=== PATIENT | female | born 1990 | race Caucasian/White ===

== ENCOUNTER 2017-01-03 19:28 | Emergency (ER) | payer MEDICAID ==
[~2017-01-03] VITALS: Ht 157.5 cm; Wt 61.5 kg
[2017-01-03 19:41] VITALS: Ht 157.5 cm; Wt 61.5 kg
[2017-01-03] MEDS ORDERED: ACETAMINOPHEN 500 MG TAB PO STA (20:16)
[2017-01-03 20:41] LABS: ADD UMIC NO; URINE BILIRUBIN (Dip) NEGATIVE (NEGATIVE); URINE BLOOD (Dip) NEGATIVE (NEGATIVE); URINE COLOR LT. YELLOW (YELLOW); URINE GLUCOSE (Dip) NEGATIVE (NEGATIVE); URINE KETONES (Dip) NEGATIVE (NEGATIVE); URINE LEUKOCYTE ESTERASE (Dip) NEGATIVE (NEGATIVE); URINE NITRITE (Dip) NEGATIVE (NEGATIVE); URINE TOTAL PROTEIN (Dip) NEGATIVE (NEGATIVE); URINE UROBILINOGEN (Dip) 0.2 E.U./dL (0.1-1.0)
--- NOTE | 2017-01-03 22:27 | RADRPT ---
PROCEDURE: Obstetrical ultrasound, limited. CLINICAL INDICATION: Pelvic pain. TECHNIQUE: Multiple sonographic images of the pelvis were obtained using transabdominal technique . Images were obtained with mcdaniel scale and color Doppler. The images were reviewed on a PACS works tation. COMPARISON: No prior studies are available for comparison. FINDINGS: There is a single living intrauterine gestation with the fetus in a vertex and variable presentation . heart tones of 150 beats per minute are identified. The placenta is anterior in location, grade 1. There is no evidence of placenta previa or abruption. Measurements were made in order to determine age. The results are as follows: BPD =4.14 cm HC =14.67 cm AC =13.45 cm FL =2.46 cm. Estimated gestational age of approximately 18 weeks and 1 day. The estimated date of delivery is 06/05/2017. The EFW = 228 +/- 34 grams. Estimated weight percentage equals 88.2%. IMPRESSION: Single viable intrauterine gestation of approximately 18 weeks and 1 day, with an ultrasound GREG of 06/05/2017. .Justino Jin MD, MD Date Time Electronically viewed and signed by .Justino Jin MD, MD on 01/03/2017 22:26 .T/
[2017-01-03] MEDS ORDERED: ACET500C5 PO (22:40)
--- NOTE | 2017-01-03 22:58 | ERD ---
ER Documentation Chief Complaint Date/Time DATE: 01/03/17 TIME: 22:46 Chief Complaint BACK AND ANTERIOR PELVIC PAIN, SLIPPED FELL BCKWRDS 1-2 MOS AGO, 16WKS PREG HPI Patient is a 26-year-old female, , who presents to the emergency department for back and pelvic pain which started 4 months ago. Patient states 4 months ago she fell backwards while at work. Patient states that her pain is localized to her lower back. Patient denies any radiation of the pain down her legs. Patient denies any saddle anesthesia, bowel guarding, stool incontinence. Patient denies any dysuria, hematuria, frequency or urgency. She denies any shortness of breath, chest pain, nausea, vomiting or diarrhea. Patient denies any excessive vaginal bleeding or vaginal discharge. Patient denies taking any medication for her symptoms. ROS All systems reviewed and are negative except as per history of present illness. Medications Home Meds Active Scripts Acetaminophen* (Tylophen*) 500 Mg Capsule, 1 CAP PO Q6H Y for PAIN AND OR ELEVATED TEMP, #20 CAP Prov:HALIMA GUSMAN PA-C 01/03/17 Allergies Allergies: Coded Allergies: No Known Allergy (Unverified , 01/03/17) PMhx/Soc Medical and Surgical Hx: pt denies Surgical Hx History of Surgery: No Anesthesia Reaction: No Hx Neurological Disorder: No Hx Respiratory Disorders: No Hx Cardiac Disorders: No Hx Psychiatric Problems: No Hx Miscellaneous Medical Probl: Yes (anemia) Hx Alcohol Use: No Hx Substance Use: No Hx Tobacco Use: No FmHx Family History: No diabetes Physical Exam Vitals Vital Signs Date Time Temp Pulse Resp B/P Pulse Ox O2 Delivery O2 Flow Rate FiO2 01/03/17 19:41 98.5 77 18 109/59 100 Physical Exam GENERAL: Well-developed, well-nourished female. Appears in no acute distress. HEAD: Normocephalic, atraumatic. EYES: Pupils are equally reactive bilaterally. EOMs grossly intact. No conjunctival erythema. ENT: Moist mucous membranes. No uvula deviation. No kissing tonsils. NECK: Supple. No meningismus. Normal range of motion of the neck. LUNG: Clear to auscultation bilaterally. No rhonchi, wheezing, rales or coarse breath sounds. HEART: Regular rate and rhythm. No murmurs, rubs or gallops. ABDOMEN: Soft and nondistended. Positive bowel sounds in all four quadrants. No rebound tenderness, no guarding. (-) McBurney's point tenderness. No CVA tenderness. BACK: No midline tenderness. Tender to palpation of bilateral lumbar paraspinals muscle. Negative straight leg raise bilaterally. EXTREMITIES: Equal pulses bilaterally. No peripheral clubbing, cyanosis or edema. No unilateral leg swelling. NEUROLOGIC: Alert and oriented. Moving all four extremities without any difficulty. Normal speech. Steady gait. SKIN: Normal color. Warm and dry. No rashes or lesions. Results 24 hrs Laboratory Tests Test 01/03/17 20:24 Urine Color LT. YELLOW Urine Clarity CLEAR Urine pH 6.5 Urine Specific [place] 1.025 Urine Ketones NEGATIVE Urine Nitrite NEGATIVE Urine Bilirubin NEGATIVE Urine Urobilinogen 0.2 E.U./dL Urine Leukocyte Esterase NEGATIVE Urine Hemoglobin NEGATIVE Urine Glucose NEGATIVE% Urine Total Protein NEGATIVE Current Medications Medications (Trade) Dose Ordered Sig/Juan Route PRN Reason Start Time Stop Time Status Last Admin Dose Admin Acetaminophen (Tylenol Tab) 500 mg ONCE STAT PO 01/03/17 20:16 01/03/17 20:18 DC 01/03/17 20:22 Procedures/MDM ED COURSE: The patient was stable throughout ED course. I kept the patient and/or family informed of laboratory and diagnostic imaging results throughout the ED course. DIAGNOSTIC IMAGING: Read by radiologist. DIAGNOSTIC IMAGING REPORT Patient: SHAHAB YOUNG : 1990 Age: 26 Sex: F MR #: [id number] DOS: 01/03/172015 Ordering MD: HALIMA GUSMAN PA-C Location: FTE Room/Bed: PROCEDURE: Obstetrical ultrasound, limited. CLINICAL INDICATION: Pelvic pain. TECHNIQUE: Multiple sonographic images of the pelvis were obtained using transabdominal technique. Images were obtained with mcdaniel scale and color Doppler. The images were reviewed on a PACS workstation. COMPARISON: No prior studies are available for comparison. FINDINGS: There is a single living intrauterine gestation with the fetus in a vertex and variable presentation. heart tones of 150 beats per minute are identified. The placenta is anterior in location, grade 1. There is no evidence of placenta previa or abruption. Measurements were made in order to determine age. The results are as follows: BPD = 4.14 cm HC = 14.67 cm AC = 13.45 cm FL = 2.46 cm. Estimated gestational age of approximately 18 weeks and 1 day. The estimated date of delivery is 06/05/2017. The EFW = 228 +/- 34 grams. Estimated weight percentage equals 88.2%. IMPRESSION: Single viable intrauterine gestation of approximately 18 weeks and 1 day, with an ultrasound GREG of 06/05/2017. .Justino Jin MD, Date Time Electronically viewed and signed by .Justino Jin MD, MD on 01/03/2017 22:26 .T/ CC: HALIMA GUSMAN PA-C MEDICATIONS GIVEN: Tylenol Patient tolerated medication well with no adverse reactions. Patient reported improvement in pain. MEDICAL DECISION MAKING: This is a 26-year-old female , who presents to the emergency department with lower back pain for months. Patient should not states she fell while at work 4 months ago. Vital signs were reviewed. Patient was afebrile. Patient denied any fever, chills, saddle anesthesia, urinary incontinence, bowel incontinence. UA was negative for acute infection or hematuria. Given that patient is currently , x-ray imaging was deferred at this time. I explained to the patient that given her state I am unable to rule out any acute fractures or dislocations. Patient was given Tylenol here in the ED. Patient reported improvement in pain. Cervical ultrasound showed single viable intrauterine gestation of approximately 18 weeks and 1 day. Given these findings, the patient's presentation is most consistent with lumbar strain. I have a much lower clinical concern for cauda equine syndrome, epidural abscess, spinal metastases, osteomyelitis, aortic dissection, ruptured or leaking AA, sciatica, UTI, pyelonephritis or nephrolithiasis. PRESCRIPTIONS: Tylenol DISCHARGE: At this time, patient is stable for discharge and outpatient management. Cool compresses were advised. 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 Patient may need an MRI on an outpatient basis if her pain persists. RICE therapy and ROM exercises were advised to avoid stiffness. I have instructed the patient to follow-up with his/ her primary care physician in 1-2 days. I have discussed with the patient the possibility of needing to see an airborne sensor specialist for further workup and imaging if the pain persists. I have instructed the patient to promptly return to the ER for any new or worsening symptoms including increased pain, swelling, warmth, urinary incontinence, stool incontinence, weakness or numbness. The patient and/or family expressed understanding of and agreement with this plan. All questions were answered. Home care instructions were provided. Departure Diagnosis: Primary Impression: Back pain Back pain location: back pain in unspecified location Chronicity: unspecified Back pain laterality: unspecified Qualified Code: M54.9 - Back pain, unspecified back location, unspecified back pain laterality, unspecified chronicity Condition: Stable Patient Instructions: Back Pain (Acute Or Chronic), , Established, Normal Symptoms Referrals: RESEARCH MECHANIC [place] [address] [facility] [address] [place] [address]ABUSLEME [facility] [address] [place] [address] DR. GARCIA LILY [address] [place] [address] [address] SAVAGE [facility] [address] [facility], [facility] [address] [address] [address] [facility] [address] [place] [address] [facility] [address] [place] [address] [phone] [address] [facility] [address] - [place], [facility] [address] [address] [place], [place] [address] [facility] [address] [address] [address] [address] [place], [place] [address] [facility] YOU HAVE RECEIVED A MEDICAL SCREENING EXAM AND THE RESULTS INDICATE THAT YOU DO NOT HAVE A CONDITION THAT REQUIRES URGENT TREATMENT IN THE EMERGENCY DEPARTMENT. FURTHER EVALUATION AND TREATMENT OF YOUR CONDITION CAN WAIT UNTIL YOU ARE SEEN IN YOUR DOCTORS OFFICE WITHIN THE NEXT 1-2 DAYS. IT IS YOUR RESPONSIBILITY TO MAKE AN APPOINTMENT FOR FOLOW-UP CARE. IF YOU HAVE A PRIMARY DOCTOR --you should call your primary doctor and schedule an appointment IF YOU DO NOT HAVE A PRIMARY DOCTOR YOU CAN CALL OUR PHYSICIAN REFERRAL HOTLINE AT IF YOU CAN NOT AFFORD TO SEE A PHYSICIAN YOU CAN CHOSE FROM THE FOLLOWING [facility] [address] [facility] [address] [facility] [address] [facility] [address] [facility] [address] [facility] [address] [facility]. [facility] [address] [facility]. [facility] YOU HAVE RECEIVED A MEDICAL SCREENING EXAM AND THE RESULTS INDICATE THAT YOU DO NOT HAVE A CONDITION THAT REQUIRES URGENT TREATMENT IN THE EMERGENCY DEPARTMENT. FURTHER EVALUATION AND TREATMENT OF YOUR CONDITION CAN WAIT UNTIL YOU ARE SEEN IN YOUR DOCTORS OFFICE WITHIN THE NEXT 1-2 DAYS. IT IS YOUR RESPONSIBILITY TO MAKE AN APPOINTMENT FOR FOLOW-UP CARE. IF YOU HAVE A PRIMARY DOCTOR --you should call your primary doctor and schedule and appointment IF YOU DO NOT HAVE A PRIMARY DOCTOR YOU CAN CALL OUR PHYSICIAN REFERRAL HOTLINE AT . IF YOU CAN NOT AFFORD TO SEE A PHYSICIAN YOU CAN CHOSE FROM THE FOLLOWING [facility]: [facility] [address] [place] [address] [facility] [address] [place] [address] [facility] [address] [place] [address] Additional Instructions: Call your primary care doctor/OBGYN TOMORROW for an appointment during the next 1-2 days.See the doctor sooner or return here if your condition worsens before your appointment time. Unable to rule out any fractures, ligament or tendon injuries at this time. HALIMA GUSMAN PA-C Jan 03, 2017 22:58
[2017-01-03 23:11] VITALS: BP 107/76; PULSE 66; RESP 16
== END 2017-01-03 23:11 | disposition home or self-care (01) ==
LOC: FTE 19:28
DX: O99.89 Other specified diseases and conditions complicating pregnancy, childbirth and the puerperium (principal); M54.9 Dorsalgia, unspecified; Z3A.18 18 weeks gestation of pregnancy
CPT/HCPCS: 76805; 81003; Z7502; Z7610

== ENCOUNTER 2017-03-29 19:50 | Outpatient (CLI) | payer MEDICAID ==
[~2017-03-29] VITALS: Ht 152.4 cm; Wt 71.0 kg
[~2017-03-29 19:50] MED LIST: ACET500C5 PO
[2017-03-29 21:38] LABS: UR BILIRUBIN (Dip) NEGATIVE (NEGATIVE); UR BLOOD (Dip) NEGATIVE (NEGATIVE); UR CLARITY CLEAR (CLEAR); UR COLOR STRAW (YELLOW); UR GLUCOSE (Dip) NEGATIVE (NEGATIVE); UR KETONES (Dip) NEGATIVE (NEGATIVE); UR NITRITE (Dip) NEGATIVE (NEGATIVE); UR SPECIFIC GRAVITY (Dip) 1.003 (1.003-1.030); UR TOTAL PROTEIN (Dip) NEGATIVE (NEGATIVE)
[2017-03-29 21:39] LABS: ADD UMIC NO; UR ASCORBIC ACID NEGATIVE (NEGATIVE); UR LEUKOCYTE ESTERASE (Dip) NEGATIVE Leu/ul (NEGATIVE); UR UROBILINOGEN (Dip) NEGATIVE (NEGATIVE)
[2017-03-29 21:48] VITALS: BP 121/78; PULSE 82; RESP 18
[2017-03-29] MEDS ORDERED: FERR134T PO (21:51)
[2017-03-29] MEDS ORDERED: PREN-93 PO (21:51)
--- NOTE | 2017-03-29 22:09 | RADRPT ---
PROCEDURE: US evaluation of amniotic fluid volume. CLINICAL INDICATION: Contractions. TECHNIQUE: Multiple sonographic images of the gravid uterus were obtained utilizing mcdaniel-scale nate ging. Sagittal and transverse images were obtained. Transvaginal sonography of the cervix was also performed. The images were reviewed on a PACS workstation. NISHI was measured. COMPARISON: No prior studies are available for comparison. FINDINGS: There is a single live intrauterine . heart rate is 166 beats per minute. Position is cephalic. Placenta is anterior grade 1 with no abruption or previa. NISHI is 13.1 cm. (Normal = 5-20 cm.) Transvaginal cervical length is 4.3 cm. IMPRESSION: 1. NISHI is 13.1 cm. 2. Cervical length is 4.3 cm. RPTAT: QQ .Silver Daniels MD, MD Date Time Electronically viewed and signed by .Silver Daniels MD, on 03/29/2017 22:08 .R/
[2017-03-29 22:53] LABS: BASOPHILS % 0.2 % (0.0-2.0); EOSINOPHILS # 0.2 10^3/ul (0.0-0.5); EOSINOPHILS % 1.7 % (0.0-7.0); HEMATOCRIT 33.8 % (37.0-47.0); HEMOGLOBIN 11.6 g/dl (12.0-16.0); LYMPHOCYTES % 19.4 % (15.0-51.0); MEAN CORPUSCULAR HEMOGLOBIN 31.2 pg (29.0-33.0); MEAN CORPUSCULAR HGB CONC 34.3 g/dl (32.0-37.0); MEAN CORPUSCULAR VOLUME 90.9 fl (82.0-101.0); MEAN PLATELET VOLUME 10.4 fl (7.4-10.4); MONOCYTE # 0.8 10^3/ul (0.3-0.9); MONOCYTES % 7.4 % (0.0-11.0); NEUTROPHILS % 68.8 % (39.0-77.0); PLATELET COUNT 311 10^3/UL (140-415); RED BLOOD COUNT 3.72 10^6/ul (4.20-5.40); RED CELL DISTRIBUTION WIDTH 13.9 % (11.5-14.5); WHITE BLOOD COUNT 10.5 10^3/ul (4.8-10.8)
[2017-03-29 23:30] LABS: ALBUMIN 3.7 g/dl (3.3-4.9); CALCIUM 9.8 mg/dl (8.4-10.2); CREATININE 0.54 mg/dl (0.44-1.00); POTASSIUM 3.7 mmol/L (3.5-5.1); TOTAL PROTEIN 7.4 g/dl (6.1-8.1)
--- NOTE | 2017-03-30 00:13 | PN ---
Triage Information Date/Time Reason for visit: Abd/pelvic pain Weeks of Gestation 29 weeks /Para Diabetes: none Hypertention: none Objective Vital Signs Date Time Temp Pulse Resp B/P Pulse Ox O2 Delivery O2 Flow Rate FiO2 03/29/17 21:48 98.1 82 18 121/78 Room Air Heart Rate: 140's Heart Rate Comments Category I Contractions: None Results/Medications Result Diagram: 03/29/17215103/29/172151 Results 24 hrs Laboratory Tests Test 03/29/17 19:59 03/29/17 20:54 03/29/17 21:52 Urine Color STRAW Urine Clarity CLEAR Urine pH 7.0 Urine Specific [place] 1.003 Urine Ketones NEGATIVE Urine Nitrite NEGATIVE Urine Bilirubin NEGATIVE Urine Urobilinogen NEGATIVE Urine Leukocyte Esterase NEGATIVE Urine Hemoglobin NEGATIVE Urine Glucose NEGATIVE Urine Total Protein NEGATIVE Membranes Rupture NEGATIVE White Blood Count 10.5 Red Blood Count 3.72 L Hemoglobin 11.6 L Hematocrit 33.8 L Mean Corpuscular Volume 90.9 Mean Corpuscular Hemoglobin 31.2 Mean Corpuscular Hemoglobin Concent 34.3 Red Cell Distribution Width 13.9 Platelet Count 311 Mean Platelet Volume 10.4 Neutrophils % 68.8 Lymphocytes % 19.4 Monocytes % 7.4 Eosinophils % 1.7 Basophils % 0.2 Nucleated Red Blood Cells % 0.0 Neutrophils # (Manual) 7.2 Lymphocytes # 2.0 Monocytes # 0.8 Eosinophils # 0.2 Basophils # 0.0 Nucleated Red Blood Cells # 0.0 Sodium Level 138 Potassium Level 3.7 Chloride Level 102 Carbon Dioxide Level 23 Anion Gap 17 H Blood Urea Nitrogen 10 Creatinine 0.54 Glucose Level 86 Calcium Level 9.8 Total Bilirubin 0.0 L Direct Bilirubin 0.00 Indirect Bilirubin 0.0 Aspartate Amino Transf (AST/SGOT) 23 Alanine Aminotransferase (ALT/SGPT) 33 Alkaline Phosphatase 100 Total Protein 7.4 Albumin 3.7 Globulin 3.70 H Albumin/Globulin Ratio 1.00 Amylase Level 67 Lipase 45 Disposition: Discharge Assessment/Plan After rest, pain resolved. D/C home. BRUNO GARCIA MD Mar 30, 2017 00:13
== END 2017-03-30 02:00 | disposition home or self-care (01) ==
LOC: OBT 19:50 → L-D 19:51 → OBT 03-30 02:00
PROVIDERS: ATTEND Obstetrics & Gynecology
DX: O26.893 Other specified pregnancy related conditions, third trimester (principal); Z3A.29 29 weeks gestation of pregnancy; R10.9 Unspecified abdominal pain
CPT/HCPCS: 76815; 76817; 80053; 81003; 82150; 83690; 84112; 85025; Z7500; G0463

== ENCOUNTER 2017-05-19 19:46 | Outpatient (CLI) | payer SELFPAY ==
[~2017-05-19] VITALS: Ht 149.9 cm; Wt 75.8 kg
[~2017-05-19 19:46] MED LIST changes: -ACET500C5 PO; +FERR134T PO; +PREN-93 PO
[2017-05-19 20:23] VITALS: BP 121/74; PULSE 81; RESP 18; Ht 149.9 cm; Wt 75.8 kg
[2017-05-19 21:29] LABS: ADD UMIC NO; UR ASCORBIC ACID 20 mg/dL (NEGATIVE); UR BILIRUBIN (Dip) NEGATIVE (NEGATIVE); UR BLOOD (Dip) NEGATIVE (NEGATIVE); UR CLARITY CLEAR (CLEAR); UR COLOR STRAW (YELLOW); UR GLUCOSE (Dip) NEGATIVE (NEGATIVE); UR KETONES (Dip) NEGATIVE (NEGATIVE); UR LEUKOCYTE ESTERASE (Dip) NEGATIVE Leu/ul (NEGATIVE); UR NITRITE (Dip) NEGATIVE (NEGATIVE); UR SPECIFIC GRAVITY (Dip) 1.008 (1.003-1.030); UR TOTAL PROTEIN (Dip) NEGATIVE (NEGATIVE); UR UROBILINOGEN (Dip) NEGATIVE (NEGATIVE)
--- NOTE | 2017-05-19 22:54 | RADRPT ---
PROCEDURE: Obstetrical ultrasound for biophysical profile CLINICAL INDICATION: Biophysical profile. . TECHNIQUE: Obstetrical ultrasound of the uterus for biophysical profile. Transabdominal views are obtained. COMPARISON: 03/29/2017 FINDINGS: Single intrauterine gestation. Presentation: Cephalic. Placenta: Anterior. No evidence of placental abruption. No evidence of placenta previa. breathing movement = 2/2 tone = 2/2 motion = 2/2 NISHI = 2/2 NISHI = 12.8 cm heart rate: 133 beats per minute IMPRESSION: Single intrauterine gestation. Biophysical profile 03/10 RPTAT: AADD .Cory Mccallum MD, MD Date Time Electronically viewed and signed by .Cory Mccallum MD, on 05/19/2017 22:54 .B/
--- NOTE | 2017-05-19 23:50 | PN ---
Triage Information Date/Time Reason for visit: Uterine contractions (starting at [id number] this morning, better over the course of the day and then stronger again at 1700. contractions are now less intense) Weeks of Gestation 36+6 /Para 1/0 Diabetes: none Hypertention: none Additional information Reports normal FM, denies LOF or VB Objective Vital Signs Date Time Temp Pulse Resp B/P Pulse Ox O2 Delivery O2 Flow Rate FiO2 05/19/17 20:23 98.3 81 18 121/74 Room Air Heart Rate: 130's Heart Rate Comments moderate variability, +accels, no decels Contractions: < 5 Minutes Apart (irregular contractions) Exam FT/long/high/posterior, unchanged x2 Results/Medications Results 24 hrs Laboratory Tests Test 05/19/17 21:07 Urine Color STRAW Urine Clarity CLEAR Urine pH 7.0 Urine Specific [place] 1.008 Urine Ketones NEGATIVE Urine Nitrite NEGATIVE Urine Bilirubin NEGATIVE Urine Urobilinogen NEGATIVE Urine Leukocyte Esterase NEGATIVE Urine Hemoglobin NEGATIVE Urine Glucose NEGATIVE Urine Total Protein NEGATIVE Imaging Results PROCEDURE: Obstetrical ultrasound for biophysical profile CLINICAL INDICATION: Biophysical profile. . TECHNIQUE: Obstetrical ultrasound of the uterus for biophysical profile. Transabdominal views are obtained. COMPARISON: 03/29/2017 FINDINGS: Single intrauterine gestation. Presentation: Cephalic. Placenta: Anterior. No evidence of placental abruption. No evidence of placenta previa. breathing movement = 2/2 tone = 2/2 motion = 2/2 NISHI = 2/2 NISHI = 12.8 cm heart rate: 133 beats per minute IMPRESSION: Single intrauterine gestation. Biophysical profile 03/10 Disposition: Discharge Assessment/Plan No e/o PTL given serial SVE with unchanged exam Reactive NST, BPP 03/10 Pt encouraged to f/up as scheduled in clinic on 05/22/17 FKC, ROM, PTL precautions reviewed KYREE FLORES MD May 19, 2017 23:50
--- NOTE | 2017-05-20 02:01 | TRIAGE ---
OB Triage Datetime Report Generated by CPN: 05/20/2017 02:01 Datetime: 05/20/2017 19:40 Time of Arrival: 05/20/2017 19:40 EGA: 37.0 Datetime: 05/20/2017 00:01 Stage of : OB Triage Datetime: 05/19/2017 23:56 Vaginal Exam Dilatation (cms): 0.5 Effacement (%): 0 Station: -3 Exam By: A LIVAN RN Datetime: 05/19/2017 22:14 EGA: 36.6 Datetime: 05/19/2017 22:00 Labor Evaluation Frequency: 2-5 Labor Evaluation Frequency: IRREGULAR Monitor Mode: External Duration (sec)2399: 60-120 Quality: Mild Pattern: Normal: <= 5 Contractions in 10 Minutes Resting Tone Hooper: Relaxed Heart Rate FHR Baseline Rate: 135 Monitor Mode: External US FHR Baseline Changes: No Baseline Change Variability: Moderate 6-25 bpm Accelerations: 15X15 Decelerations: None Category: Category I Datetime: 05/19/2017 21:00 Labor Evaluation Frequency: 1-2 Monitor Mode: External Duration (sec)2399: 60-120 Quality: Mild Pattern: Normal: <= 5 Contractions in 10 Minutes Resting Tone Hooper: Relaxed Heart Rate FHR Baseline Rate: 135 Monitor Mode: External US FHR Baseline Changes: No Baseline Change Variability: Moderate 6-25 bpm Accelerations: 15X15 Decelerations: None Category: Category I Datetime: 05/19/2017 19:54 Stage of : OB Triage Vaginal Exam Dilatation (cms): 0.5 Effacement (%): 0 Station: -3 Exam By: Ana LICONA RN Datetime: 05/19/2017 19:50 Stage of : OB Triage Time of Arrival: 05/19/2017 19:39 Arrived By: Wheelchair Arrived From: Home Chief Complaint: CONTRACTIONS Movement: Present Rupture of Membranes: Unsure Vaginal Bleeding: None Vaginal Discharge: Present Recent Sexual Intercouse: Denies Abdominal Trauma: Not Applicable Patient Complaints: None (Annotations: Data stored by CPN on behalf of user) Provider Notified: DR FLORES Initial Plan: CALL [facility] NO Maternal Assessment Level of Consciousness: Fully Conscious DTR's/Clonus: DTRs 2+; No Clonus Headache: Denies Blurred Vision: No Respiratory Effort: Unlabored; Regular Rhythm; Equal Expansion Breath Sounds, Left: Clear and Equal Breath Sounds, Right: Clear and Equal Nausea/Vomiting: Denies RUQ Epigastric Pain: Denies Lower Extremities Edema: Bilateral Lower Extremities Degree: 1+ Upper Extremities Edema: None Degree: None Facial Edema: None Temperature Route: Oral Fall Risk Assessment History of Falling: (0) No Secondary Diagnosis: (0) No Ambulatory Aid: (0) Bedrest/Nurse Assist IV Therapy: (0) No Gait: (0) Normal/Bedrest/Immobile Mental Status: (0) Oriented to Own Ability Fall Score: 0 Fall Risk Score Definition: No Risk: No action required Monitor Mode: External Monitor Mode: External US Pain Assessment Pain Scale: 8 Pain Presence: Intermittent Pain Type: Contraction Pain Location: Abdomen; Back Datetime: 05/19/2017 19:40 Time of Arrival: 05/20/2017 19:39 Arrived By: Wheelchair Arrived From: Home Chief Complaint: CONTRACTIONS THAT STARTED @ 1700 Movement: Present Contractions: Denies/Absent Time Contractions Began: 05/20/2017 17:00 Rupture of Membranes: Denies Vaginal Bleeding: None Vaginal Discharge: Denies Recent Sexual Intercouse: Denies Abdominal Trauma: Not Applicable Patient Complaints: None Time Provider Notified: 05/19/2017 20:00 Provider Notified: DR FLORES Initial Plan: CALL [facility] NO Datetime: 03/29/2017 20:51 Maternal Assessment Level of Consciousness: Fully Conscious Headache: Denies Blurred Vision: No Nausea/Vomiting: Present RUQ Epigastric Pain: Denies Monitor Mode: External Monitor Mode: External US
== END 2017-05-20 00:11 | disposition home or self-care (01) ==
LOC: OBT 19:46 → L-D 19:48 → OBT 05-20 00:11
PROVIDERS: ATTEND Obstetrics & Gynecology
DX: O62.9 Abnormality of forces of labor, unspecified (principal); Z3A.36 36 weeks gestation of pregnancy
CPT/HCPCS: 76818; 81003; G0463

== ENCOUNTER 2017-05-27 20:52 | Outpatient (CLI) | payer SELFPAY ==
[~2017-05-27] VITALS: Ht 149.9 cm; Wt 76.0 kg
[2017-05-27 21:42] VITALS: BP 105/62; PULSE 69; RESP 18; Ht 149.9 cm; Wt 76.0 kg
[2017-05-27] MEDS ORDERED: AL HYDROX/MG HYDROX/SIMETH 30 ML CUP PO ONE (22:00)
[2017-05-27] MEDS ORDERED: FAMOTIDINE 20 MG TAB PO ONE (22:00)
[2017-05-27 22:26] LABS: ADD UMIC NO; UR ASCORBIC ACID NEGATIVE (NEGATIVE); UR BILIRUBIN (Dip) NEGATIVE (NEGATIVE); UR BLOOD (Dip) NEGATIVE (NEGATIVE); UR CLARITY CLEAR (CLEAR); UR COLOR YELLOW (YELLOW); UR GLUCOSE (Dip) NEGATIVE (NEGATIVE); UR KETONES (Dip) NEGATIVE (NEGATIVE); UR LEUKOCYTE ESTERASE (Dip) NEGATIVE Leu/ul (NEGATIVE); UR NITRITE (Dip) NEGATIVE (NEGATIVE); UR SPECIFIC GRAVITY (Dip) 1.011 (1.003-1.030); UR TOTAL PROTEIN (Dip) NEGATIVE (NEGATIVE); UR UROBILINOGEN (Dip) NEGATIVE (NEGATIVE)
--- NOTE | 2017-05-28 07:24 | PN ---
Triage Information Date/Time 05/27/2017 Reason for visit: Weeks of Gestation 38 weeks /Para 1 para 0 Diabetes: none Hypertention: none Additional information \27-year-old with IUP at 38 weeks presented with complaint of chest pain and epigastric area with radiation to the back. Per patient she had 2 episodes of chest pain lasted about a couple minutes and currently also complaining of GERD symptoms with heartburn. She also complains of passing mucus with some leaking fluid for the past couple days. Denies any vaginal bleeding or decreased movement. She denies any uterine contractions. Objective Vital Signs Date Time Temp Pulse Resp B/P Pulse Ox O2 Delivery O2 Flow Rate FiO2 05/27/17 21:42 98.0 69 18 105/62 99 Room Air Heart Rate: 130's Contractions: >10 Minutes Apart Exam General appearance: Alert and oriented 4. Patient appears to be in mild distress. CV: RRR Lungs: Clear to auscultation bilaterally Abdomen: Gravid, fundal height consistent with gestational age. No tenderness, no rebound tenderness, no guarding no rigidity no acute evidence of acute abdomen Extremities: No calf tenderness, no click no edema Results/Medications Results 24 hrs Laboratory Tests Test 05/27/17 20:50 05/27/17 22:30 Urine Color YELLOW Urine Clarity CLEAR Urine pH 7.0 Urine Specific [place] 1.011 Urine Ketones NEGATIVE Urine Nitrite NEGATIVE Urine Bilirubin NEGATIVE Urine Urobilinogen NEGATIVE Urine Leukocyte Esterase NEGATIVE Urine Hemoglobin NEGATIVE Urine Glucose NEGATIVE Urine Total Protein NEGATIVE Membranes Rupture POSITIVE H Imaging Results PROCEDURE: Obstetrical ultrasound for biophysical profile CLINICAL INDICATION: Biophysical profile. . TECHNIQUE: Obstetrical ultrasound of the uterus for biophysical profile. Transabdominal views are obtained. COMPARISON: 03/29/2017 FINDINGS: Single intrauterine gestation. Presentation: Cephalic. Placenta: Anterior. No evidence of placental abruption. No evidence of placenta previa. breathing movement = 2/2 tone = 2/2 motion = 2/2 NISHI = 2/2 NISHI = 12.8 cm heart rate: 133 beats per minute IMPRESSION: Single intrauterine gestation. Biophysical profile 03/10 PROCEDURE: US evaluation of amniotic fluid volume. CLINICAL INDICATION: Contractions. TECHNIQUE: Multiple sonographic images of the gravid uterus were obtained utilizing mcdaniel-scale imaging. Sagittal and transverse images were obtained. Transvaginal sonography of the cervix was also performed. The images were reviewed on a PACS workstation. NISHI was measured. COMPARISON: No prior studies are available for comparison. FINDINGS: There is a single live intrauterine . heart rate is 166 beats per minute. Position is cephalic. Placenta is anterior grade 1 with no abruption or previa. NISHI is 13.1 cm. (Normal = 5-20 cm.) Transvaginal cervical length is 4.3 cm. IMPRESSION: 1. NISHI is 13.1 cm. 2. Cervical length is 4.3 cm. RPTAT: QQ ROCEDURE: Obstetrical ultrasound, limited. CLINICAL INDICATION: Pelvic pain. TECHNIQUE: Multiple sonographic images of the pelvis were obtained using transabdominal technique. Images were obtained with mcdaniel scale and color Doppler. The images were reviewed on a PACS workstation. COMPARISON: No prior studies are available for comparison. FINDINGS: There is a single living intrauterine gestation with the fetus in a vertex and variable presentation. heart tones of 150 beats per minute are identified. The placenta is anterior in location, grade 1. There is no evidence of placenta previa or abruption. Measurements were made in order to determine age. The results are as follows: BPD = 4.14 cm HC = 14.67 cm AC = 13.45 cm FL = 2.46 cm. Estimated gestational age of approximately 18 weeks and 1 day. The estimated date of delivery is 06/05/2017. The EFW = 228 +/- 34 grams. Estimated weight percentage equals 88.2%. IMPRESSION: Single viable intrauterine gestation of approximately 18 weeks and 1 day, with an ultrasound GREG of 06/05/2017. Disposition: Discharge Assessment/Plan IUP at 38 weeks Chest pain, EKG normal. GERD symptoms Resolved after receiving Maalox and Pepcid No evidence of PROM. Speculum examination no evidence of pooling, negative nitrazine, ferning test was done by myself at pathology and was negative RM test false positive Adequate amniotic fluid noted heart tracing category 1 Patient will be discharged home Follow-up with OB clinic within a couple of days after discharge from the hospital or sooner as needed Strict labor precautions and kick count and follow-up within 24-48 hours will be [facility] discussed with the patient VALENTIN BECERRIL MD May 28, 2017 07:24
--- NOTE | 2017-05-28 08:38 | TRIAGE ---
OB Triage Datetime Report Generated by CPN: 05/28/2017 02:26 Datetime: 05/28/2017 01:22 Stage of : OB Triage Datetime: 05/28/2017 01:15 Stage of : OB Triage Labor Evaluation Frequency: IRREG Monitor Mode: External Duration (sec)2399: 60-130 Quality: Mild Pattern: Normal: <= 5 Contractions in 10 Minutes Resting Tone [place]: Relaxed Heart Rate FHR Baseline Rate: 130 Monitor Mode: External US Variability: Moderate 6-25 bpm Accelerations: 15X15 Decelerations: None Category: Category I Datetime: 05/28/2017 00:40 Stage of : OB Triage Labor Evaluation Frequency: IRREG Monitor Mode: External Duration (sec)2399: 60-130 Quality: Mild Pattern: Normal: <= 5 Contractions in 10 Minutes Resting Tone [place]: Relaxed Heart Rate FHR Baseline Rate: 140 Monitor Mode: External US Variability: Moderate 6-25 bpm Accelerations: 15X15 Decelerations: None Category: Category I Datetime: 05/27/2017 23:40 Stage of : OB Triage Labor Evaluation Frequency: 2-8 Monitor Mode: External Duration (sec)2399: 60-130 Quality: Mild Pattern: Normal: <= 5 Contractions in 10 Minutes Resting Tone [place]: Relaxed Heart Rate FHR Baseline Rate: 140 Monitor Mode: External US Variability: Moderate 6-25 bpm Accelerations: 15X15 Decelerations: None Category: Category I Datetime: 05/27/2017 22:40 Stage of : OB Triage Labor Evaluation Frequency: X5 Monitor Mode: External Duration (sec)2399: 60-130 Quality: Mild Pattern: Normal: <= 5 Contractions in 10 Minutes Resting Tone [place]: Relaxed Heart Rate FHR Baseline Rate: 135 Monitor Mode: External US Variability: Moderate 6-25 bpm Accelerations: 15X15 Decelerations: None Category: Category I Datetime: 05/27/2017 22:35 Vaginal Exam Dilatation (cms): 0.0 Effacement (%): 60 Station: -2 Exam By: YOSELIN Pool: Negative Nitrazine: Negative Cervix, Consistency: Soft Cervix, Position: Posterior Datetime: 05/27/2017 21:56 Time of Arrival: 05/27/2017 20:46 EGA: 38.0 Arrived By: Wheelchair Arrived From: Home Chief Complaint: CXS Q 10 MIN, EPIGASTRIC PAIN, SOB, BACK PAIN, NAUSEA, ABD. PAIN Movement: Present Contractions: Irregular Time Contractions Began: 05/27/2017 07:30 Contractions: Q 10 MIN Rupture of Membranes: Unsure Vaginal Bleeding: None Vaginal Discharge: Present Patient Complaints: Cramping; Back Pain; Epigastric Pain; Shortness of Breath Additional Patient Complaints: STATED NOTED MUCUSY DISCHARGE YESTERDAY Time Provider Notified: 05/27/2017 21:35 Provider Notified: JERRICA Initial Plan: EFM, STERILE SPECULUM, NITRIZINE, ROM PLUS,VE, U/S NISHI, [place]PC[place] AND [place] Datetime: 05/27/2017 21:40 Stage of : OB Triage Labor Evaluation Frequency: X2 Monitor Mode: External Duration (sec)2399: 60-130 Quality: Mild Pattern: Normal: <= 5 Contractions in 10 Minutes Resting Tone [place]: Relaxed Heart Rate FHR Baseline Rate: 135 Monitor Mode: External US Variability: Moderate 6-25 bpm Accelerations: 15X15 Decelerations: None Category: Category I Pain Assessment Pain Scale: 5 Pain Presence: Intermittent Pain Type: Cramping; Sharp Pain Location: Abdomen; Back (Annotations: CHEST) Pain Goal: 5 Pain Relief Measures: Comfort Measures Datetime: 05/27/2017 21:10 Assessment Type: Triage Maternal Assessment Level of Consciousness: Fully Conscious DTR's/Clonus: DTRs 2+; No Clonus Headache: Denies Blurred Vision: No Respiratory Effort: Unlabored; Regular Rhythm; Equal Expansion Breath Sounds, Left: Clear and Equal Breath Sounds, Right: Clear and Equal Nausea/Vomiting: Denies Lower Extremities Edema: Bilateral Lower Extremities (Annotations: OBESE PT.) Upper Extremities Edema: None Facial Edema: None Fall Risk Assessment History of Falling: (0) No Secondary Diagnosis: (0) No Ambulatory Aid: (0) Bedrest/Nurse Assist IV Therapy: (0) No Gait: (0) Normal/Bedrest/Immobile Mental Status: (0) Oriented to Own Ability Fall Score: 0 Fall Risk Score Definition: No Risk: No action required Datetime: 05/20/2017 19:40 EGA: 37.0 Datetime: 05/19/2017 22:14 EGA: 36.6 Datetime: 05/19/2017 19:50 Fall Score: 0 Fall Risk Score Definition: No Risk: No action required
--- NOTE | 2017-05-28 13:34 | RADRPT ---
Vent Rate: 71 bpm RR Interval: 0 msec MA Interval: 138 msec QRS Duration: 78 msec QT Interval: 398 msec QTC Interval: 432 msec P-R-T [place]: 10 - 41 - 29 degrees Normal sinus rhythm Normal ECG Electronically Signed By: Jonh Saldana [id number]
== END 2017-05-28 01:22 | disposition home or self-care (01) ==
LOC: OBT 20:52 → L-D 20:54 → OBT 05-28 01:22
PROVIDERS: ATTEND Obstetrics & Gynecology
DX: O26.893 Other specified pregnancy related conditions, third trimester (principal); Z3A.38 38 weeks gestation of pregnancy; R07.9 Chest pain, unspecified; R10.13 Epigastric pain
CPT/HCPCS: 76815; 81003; 84112; 93005; G0463

== ENCOUNTER 2017-06-01 04:00 | Inpatient (IN) | payer MEDICAID ==
[~2017-06-01] VITALS: Ht 152.4 cm; Wt 75.1 kg
[~2017-06-01 04:00] MED LIST changes: +PHENYLephrine (100 MCG/ML) 5ML SYG ONE
[2017-06-01 04:08] VITALS: Ht 152.4 cm; Wt 75.1 kg
--- NOTE | 2017-06-01 05:27 | RADRPT ---
PROCEDURE: Biophysical profile. CLINICAL INDICATION: Pelvic pain. TECHNIQUE: Multiple sonographic images of the pelvis were obtained with transabdominal technique. COMPARISON: 05/27/2017. FINDINGS: There is a single living intrauterine gestation with the fetus in a vertex position. The placenta i s anterior in location, grade II. heart tones of 130 beats per minute are identified. There i s normal amniotic fluid volume with an NISHI of 17.8 cm. breathing movements = 2 Gross body movements = 2 tone = 2 Qualitative AFV = 2 IMPRESSION: Biophysical profile 8 out of 8. .Justino Jin MD, Date Time Electronically viewed and signed by .Justino Jin MD, on 06/01/2017 05:26 .T/
[2017-06-01] MEDS ORDERED: OXYTOCIN 30 UNITS/LR 500 ML IV PRN (08:00)
[2017-06-01] MEDS ORDERED: LACTATED RINGER'S 1,000 ML IV PRN (08:00)
[2017-06-01] MEDS ORDERED: BUTORPHANOL 2 MG INJ IV PRN (08:00)
[2017-06-01] MEDS ORDERED: MISOPROSTOL 200 MCG TAB PR PRN (08:00)
[2017-06-01] MEDS ORDERED: IBUPROFEN 600 MG TAB PO PRN (08:00)
[2017-06-01] MEDS ORDERED: METHYLERGONOVINE 0.2 MG INJ IM PRN (08:00)
[2017-06-01] MEDS ORDERED: OXYTOCIN 30 UNITS/LR 500 ML IV SCH ×3 (08:00→22:00)
[2017-06-01] MEDS ORDERED: CARBOPROST 250 MCG INJ IM PRN (08:00)
[2017-06-01] MEDS ORDERED: LIDOCAINE 1% (MPF) 30 ML INJ INJ PRN (08:00)
[2017-06-01] MEDS: LACTATED RINGER'S 1,000 ML IV SCH ×2 (08:19→15:02)
--- NOTE | 2017-06-01 18:13 | HP ---
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 Rubella: immune RPR/VDRL: Negative GBS Status: Negative HBsAG: Negative OB Admission Exam Physical Exam HEENT: WNL Heart: Rhythm Normal Lungs: Clear, Equal Abdomen: WNL Extremities: Normal Reflexes: Normal Cervical Dilatation: 3cm Effacement: Other (90%) Station: -2 Membranes: Intact Heart Rate: 120's Accelerations: Accelerations Present Decelerations: No Decelerations Varibility: Moderate Contractions on Admission: < 5 Minutes Apart Intensity: Moderate Last 72 hours Lab Results CBC & BMP 06/01/17 08:05 OB Assessment/Plan Reason for admission: other (Labor contraction) Other plan: 26 years old EDC June 10, 1938 weeks and 5 days admitted in early labor pelvic examination on admission cervix 3 cm dilated 90% effaced vertex at -2 station patient transferred from triage to L&D, expecting normal vaginal delivery TYLER DOWNEY MD Jun 01, 2017 18:13
--- NOTE | 2017-06-01 18:13 | HP ---
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 Rubella: immune RPR/VDRL: Negative GBS Status: Negative HBsAG: Negative OB Admission Exam Physical Exam HEENT: WNL Heart: Rhythm Normal Lungs: Clear, Equal Abdomen: WNL Extremities: Normal Reflexes: Normal Cervical Dilatation: 3cm Effacement: Other (90%) Station: -2 Membranes: Intact Heart Rate: 120's Accelerations: Accelerations Present Decelerations: No Decelerations Varibility: Moderate Contractions on Admission: < 5 Minutes Apart Intensity: Moderate Last 72 hours Lab Results CBC & BMP 06/01/17 08:05 OB Assessment/Plan Reason for admission: other (Labor contraction) Other plan: 26 years old EDC June 10, 1938 weeks and 5 days admitted in early labor pelvic examination on admission cervix 3 cm dilated 90% effaced vertex at -2 station patient transferred from triage to L&D, expecting normal vaginal delivery TYLER DOWNEY MD Jun 01, 2017 18:13
--- NOTE | 2017-06-01 18:13 | HP ---
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 Rubella: immune RPR/VDRL: Negative GBS Status: Negative HBsAG: Negative OB Admission Exam Physical Exam HEENT: WNL Heart: Rhythm Normal Lungs: Clear, Equal Abdomen: WNL Extremities: Normal Reflexes: Normal Cervical Dilatation: 3cm Effacement: Other (90%) Station: -2 Membranes: Intact Heart Rate: 120's Accelerations: Accelerations Present Decelerations: No Decelerations Varibility: Moderate Contractions on Admission: < 5 Minutes Apart Intensity: Moderate Last 72 hours Lab Results CBC & BMP 06/01/17 08:05 OB Assessment/Plan Reason for admission: other (Labor contraction) Other plan: 26 years old EDC June 10, 1938 weeks and 5 days admitted in early labor pelvic examination on admission cervix 3 cm dilated 90% effaced vertex at -2 station patient transferred from triage to L&D, expecting normal vaginal delivery TYLER DOWNEY MD Jun 01, 2017 18:13
[2017-06-02] VITALS (13 sets, daily range): BP systolic 93–125; BP diastolic 61–84; PULSE 70–100; RESP 16–25
[2017-06-02] MEDS ORDERED: FENTAnyl 2MCG/ML-ROPIV 0.2% 100 ML ONE
[2017-06-02] MEDS: LACTATED RINGER'S 1,000 ML IV SCH ×4 (01:03→07:32)
[2017-06-02] MEDS ORDERED: NALOXONE (0.4 MG/ML) INJ IV PRN ×2 (01:30→13:30)
[2017-06-02] MEDS ORDERED: FENTAnyl 2MCG/ML-ROPIV 0.2% 100 ML BAG EPI SCH (01:30)
[2017-06-02] MEDS ORDERED: PHENYLEPHRINE IV PRN (03:30)
[2017-06-02] MEDS ORDERED: SOD CHLORIDE 0.9% IV PRN (03:30)
[2017-06-02] MEDS: PHENYLephrine (100 MCG/ML) 5ML SYG IV PRN ×4 (03:38→03:44)
[2017-06-02] MEDS ORDERED: METHYLERGONOVINE 0.2 MG INJ ONE (07:00)
[2017-06-02] MEDS ORDERED: GLYCOPYRROLATE 0.4 MG INJ ONE (11:00)
[2017-06-02] MEDS ORDERED: ROCURONIUM 50 MG INJ ONE (11:00)
[2017-06-02] MEDS ORDERED: LIDOCAINE 2% (SDV) 5 ML INJ ONE (11:00)
[2017-06-02] MEDS ORDERED: NEOSTIGMINE 3 MG/3 ML SYRINGE ONE (11:00)
[2017-06-02] MEDS ORDERED: SUCCINYLCHOLINE CHLORIDE 100 MG/5 ML SYG IV ONE (11:21)
[2017-06-02] MEDS ORDERED: PROPOFOL 20 ML ONE (11:21)
[2017-06-02] MEDS ORDERED: FENTAnyl 50 MCG/ML VIAL ONE ×2 (11:40→12:39)
[2017-06-02] MEDS ORDERED: OXYTOCIN 10 UNIT INJ ONE (11:42)
[2017-06-02] MEDS ORDERED: ONDANSETRON 4 MG INJ ONE (11:51)
[2017-06-02] MEDS ORDERED: morphine SULFATE/PF (10 MG/10 ML) INJ ONE (11:52)
[2017-06-02] MEDS ORDERED: ALBUTEROL 0.083% (NEB) 2.5 MG/3 ML AMP HHN PRN (13:30)
[2017-06-02] MEDS ORDERED: EPHEDrine SULFATE 50 MG/5 ML SYG IV PRN (13:30)
[2017-06-02] MEDS ORDERED: FENTAnyl 50 MCG/ML VIAL IV PRN ×3 (13:30)
[2017-06-02] MEDS ORDERED: TRIMETHOBENZAMIDE 100 MG/ML VIAL IM PRN ×2 (13:30)
[2017-06-02] MEDS ORDERED: morphine 4 MG/ML VIAL IV PRN (13:30)
[2017-06-02] MEDS ORDERED: DIPHENHYDRAMINE 50 MG INJ IV PRN ×2 (13:30)
[2017-06-02] MEDS ORDERED: morphine 2 MG INJ IV PRN (13:30)
[2017-06-02] MEDS ORDERED: HYDROmorphONE 0.5 MG/0.5 ML SYG IV PRN ×2 (13:30)
[2017-06-02] MEDS ORDERED: hydrALAzine 20 MG INJ IV PRN (13:30)
[2017-06-02] MEDS ORDERED: ONDANSETRON 4 MG INJ IV PRN ×2 (13:30)
[2017-06-02] MEDS ORDERED: MIDAZOLAM 1 MG/ML 2 ML INJ IV PRN (13:30)
[2017-06-02] MEDS ORDERED: MEPERIDINE 25 MG INJ IV PRN (13:30)
[2017-06-02] MEDS ORDERED: IPRATROPIUM (NEB) 0.5 MG/2.5 ML AMP HHN PRN (13:30)
[2017-06-02] MEDS ORDERED: METOCLOPRAMIDE 10 MG INJ IV PRN (13:30)
[2017-06-02] MEDS ORDERED: HALOPERIDOL 5 MG INJ IV PRN (13:30)
[2017-06-02] MEDS ORDERED: LABETALOL HCL 20MG INJ IV PRN (13:30)
[2017-06-02] MEDS ORDERED: HYDROmorphONE 1 MG/ML SYG IV PRN (13:30)
[2017-06-02] MEDS: KETOROLAC 30 MG INJ IV PRN (14:10)
--- NOTE | 2017-06-02 14:45 | CONS ---
Date/Time of Note Date/Time of Note DATE: 06/02/17 TIME: 14:38 Assessment/Plan Assessment/Plan Chief Complaint/Hosp Course 27 yo female with epsiode of respiratory distress, lightheadedness, and tachycardia, now resolved - Suspect this had to do with stress of baby delivery, but PE would be my major concern. CT-Angio stat and AC if positive. Reasonable to monitor on telemetry overnight. Otherwise cleared for discharge in AM if normal. No clear need for ICU level of care Problems: Consultation Date/Type/Reason Admit Date/Time Jun 01, 2017 at 07:40 Hx of Present Illness Transfererd to ICU as during delivery was SOB, tachy and per nursing had LOC Seen in ICU followign delivery, oncly complaint is of pain in pelvis from child delivery, no chest complaints, no lightheadedness VSS, 98% on RA Social History Smoking Status: Never smoker Exam/Review of Systems Vital Signs Vitals Vital Signs Date Time Temp Pulse Resp B/P Pulse Ox O2 Delivery O2 Flow Rate FiO2 06/02/17 11:45 85 Intake and Output 06/01/17 06/01/17 06/02/17 15:00 23:00 07:00 Intake Total 900 ml 825 ml 3815 ml Output Total 500 ml 1250 ml 800 ml Balance 400 ml -425 ml 3015 ml Exam Constitutional: alert, oriented, well developed Psych: nl mood/affect, no complaints Head: atraumatic, normocephalic Eyes: EOMI, PERRL, nl conjunctiva, nl lids, nl sclera ENMT: nl external ears & nose, nl lips & teeth, nl nasal mucosa & septum Neck: non-tender, supple Respiratory: clear to auscultation, normal air movement Cardiovascular: nl pulses, regular rate and rhythm Gastrointestinal: nl liver, spleen, non-tender, soft Musculoskeletal: nl extremities to inspection, nl gait and stance Extremities: normal pulses 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, nl mental status, nl speech, nl strength Skin: nl turgor, No rash or lesions Lymph: nl lymph nodes Results Result Diagram: 06/01/17 0805 Results 24 hrs Laboratory Tests Test 06/02/17 11:15 06/02/17 11:54 Bedside Glucose 79 Blood Gas Specimen Source Blood arterial Arterial Blood Date Drawn 06/02/2017 11:50:32 AM Arterial Blood Gas Puncture Site CORD Bryan Test N/A Cord Blood Carboxyhemoglobin 0.6 Cord Arterial Blood pH 7.252 Cord Arterial Blood PCO2 53.6 H Cord Arterial Blood PO2 15.1 Cord Arterial Blood HCO3 23.1 Cord Arterial Blood Base Excess -4.7 POC Cord Arterial Blood O2 Sat 25.9 Cord Arterial Blood Hemoglobin 14.2 Cord Arterial Blood Oxyhemoglobin 25.3 Cord Arterial Blood Methemoglobin 1.8 Blood Gas A-a O2 Differential 70.4 Blood Gas Temperature 37.0 Blood Gas Modality ROOM AIR FiO2 21.0 Blood Gas Critical Value Read Back SERGIO NEWMAN Blood Gas Notified Whom RAY Blood Gas Notified Time 06/02/2017 12:10:32 PM Medications Medications Current Medications Lactated Ringer's (Lr) 1,000 ml @ 125 mls/hr Q8H IV Last administered on 06/02 07:32; Admin Dose 125 MLS/HR; Start 06/01/17 at 07:55 Butorphanol Tartrate (Stadol) 2 mg Q2H PRN IV PAIN Last administered on 17:47; Admin Dose 2 MG; Start 06/01/17 at 08:00 Lidocaine 30 ml 30 ml ONCE PRN INJ EPISIOTOMY/TEARING; Start 06/01/17 at 08:00 Oxytocin/Lactated Ringer's 500 ml @ 125 mls/hr ONCE IV Last administered on 13:23; Admin Dose 125 MLS/HR; Start 06/01/17 at 08:00 Ibuprofen 600 mg 600 mg ONCE PRN PO Mild Pain (Pain Score 1-3); Start 06/01/17 at 08:00 Lactated Ringer's 1,000 ml @ 2,000 mls/hr Q30M PRN IV PRE-EPIDURAL BOLUS Last administered on 06/01/17 23:02; Admin Dose 2,000 MLS/HR; Start 06/01/17 at 08 :00 Oxytocin/Lactated Ringer's 500 ml @ 0 mls/hr ONCE PRN IV For Hemorrhage Management; Start 06/01/17 at 08:00 Methylergonovine Maleate (Methergine) 0.2 mg ONCE PRN IM VAGINAL BLEEDING; Start 06/01/17 at 08:00 Carboprost Tromethamine (Hemabate) 250 mcg ONCE PRN IM VAGINAL BLEEDING; Start 06/01/17 at 08:00 Misoprostol 1000 mcg 1,000 mcg ONCE PRN IN VAGINAL BLEEDING; Start 06/01/17 at 08:00 Oxytocin/Lactated Ringer's 500 ml @ 0 mls/hr Q0M IV Last administered on t 03:41; Admin Dose 1 MLS/HR; Start 06/01/17 at 22:00 Naloxone HCl (Narcan) 0.2 mg Q2M PRN IV FOR RESP RATE 8 OR LESS; Start at 01:30 Phenylephrine HCl (Navjot-Synephrine Inj Syg) 100 mcg PRN PRN IV BLOOD PRESSURE SUPPORT; Start 06/02/17 at 04:00 Naloxone HCl (Narcan) 0.1 mg Q2M PRN IV FOR RESP RATE 8 OR LESS; Start at 13:30; Stop 06/03/17 at 13:29 Ketorolac Tromethamine (Toradol) 30 mg Q6H PRN IV PAIN Last administered on t 14:10; Admin Dose 30 MG; Start 06/02/17 at 13:30; Stop 06/03/17 at 13: 29 Morphine Sulfate (morphine) 2 mg Q3H PRN IV PAIN LEVEL 1-5; Start 06/02/17 at 13:30; Stop 06/03/17 at 13:29 Morphine Sulfate (morphine) 4 mg Q3H PRN IV PAIN LEVEL 6-10; Start 06/02/17 at 13:30; Stop 06/03/17 at 13:29 Diphenhydramine HCl (Benadryl) 25 mg Q6H PRN IV ITCHING; Start 06/02/17 at 13: 30; Stop 06/03/17 at 13:29 Ondansetron HCl (Zofran Inj) 4 mg Q6H PRN IV NAUSEA AND/OR VOMITING; Start at 13:30; Stop 06/03/17 at 13:29 Trimethobenzamide HCl (Tigan) 200 mg Q6H PRN IM NAUSEA AND/OR VOMITING; Start 06/02/17 at 13:30; Stop 06/03/17 at 13:29 Miscellaneous Information (* Miscellaneous Pharmacy Order) Duramorph: 2 mg Epidu... GIVEN XX ; Start 06/02/17 at 13:30 MARGARITA FITZGERALD MD Jun 02, 2017 14:45
--- NOTE | 2017-06-02 14:57 | RADRPT ---
Vent Rate: 83 bpm RR Interval: 0 msec GA Interval: 134 msec QRS Duration: 72 msec QT Interval: 390 msec QTC Interval: 458 msec P-R-T [place]: 27 - 55 - 24 degrees Normal sinus rhythm Normal ECG Electronically Signed By: Ever Sheppard [id number]
--- NOTE | 2017-06-02 14:57 | RADRPT ---
Vent Rate: 83 bpm RR Interval: 0 msec MT Interval: 134 msec QRS Duration: 72 msec QT Interval: 390 msec QTC Interval: 458 msec P-R-T [place]: 27 - 55 - 24 degrees Normal sinus rhythm Normal ECG Electronically Signed By: Ever Sheppard [id number]
--- NOTE | 2017-06-02 14:57 | RADRPT ---
Vent Rate: 83 bpm RR Interval: 0 msec NE Interval: 134 msec QRS Duration: 72 msec QT Interval: 390 msec QTC Interval: 458 msec P-R-T [place]: 27 - 55 - 24 degrees Normal sinus rhythm Normal ECG Electronically Signed By: Ever Sheppard [id number]
--- NOTE | 2017-06-02 16:41 | OPR ---
Operative Report Planned Procedure Free Text/Dictation This is a 26 years old female SAB 1 EDC June 10, 2017 admitted to the hospital in active labor, she had uneventful first stage of labor, when cervical dilatation was complete her attending nurse tried to student success coach her for pushing to accomplish second stage of labor, during this process patient started suddenly hyperventilating, and then became unresponsive, rapid response code announced, during the evaluation and assessments of the patient by barber, due to uncertainty concerning the baby's condition, I planed for emergency section under general anesthesia. Procedure date Jun 02, 2017 Procedure(s) Primary Performed by see signature line Assisting provider: ALICJA RAO M.D. Anesthesiologist: Juan Alberto Ansari M.D. Pre-procedure diagnosis Term second stage of labor maternal unresponsiveness to stimulation , concern baby's condition Anesthesia Type: general Procedure Description Under satisfactory [general] anesthesia, the patient was prepped and draped and placed in a supine position, tilted to the left. Pfannenstiel incision was made , carried through the subcutaneous tissue. Bleeders brought under control with electrocautery. Fascia incised to the length of the incision. Rectus muscles from the fascia, divided midline. Peritoneum exposed, entered through a transverse incision. Exploration of abdomen revealed gravid uterus. Normal- appearing tubes and ovaries bladder flap was developed. Transverse incision was made in the lower segment of the uterus. Amniotic sac ruptured. Scant amount of clear [] amniotic fluid noted. Light baby boy was delivered from occiput transverse [] Nasal oropharyngeal suction was performed. baby handed to the team for immediate attention. She received 20 units of Pitocin placenta was delivered manually intact. Send to pathology, uterine cavity was cleaned with wet sponge and drainage established. Uterus closed in 2 layers using [Monocryl #1] in continuous fashion. Peritoneal cavity irrigated with warm saline. Sponge, needle and instrument count reported to be correct. Abdominal peritoneum closed with [0 chromic catgut] continuously. Rectus muscle approximated with [0 chromic catgut]. Fascia closed with #1 PDS], sub cutaneous tissue approximated with few interrupted 2-0 chromic catgut skin closed with N sorb. Estimated blood loss [600 mL. Urine bag contained 200 []mL of clear urine. 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 I further certify that the patient/legally responsible person was encouraged to ask question and that all questions were answered. TYLER DOWNEY MD Jun 02, 2017 16:27
--- NOTE | 2017-06-02 16:41 | OPR ---
Operative Report Planned Procedure Free Text/Dictation This is a 26 years old female SAB 1 EDC June 10, 2017 admitted to the hospital in active labor, she had uneventful first stage of labor, when cervical dilatation was complete her attending nurse tried to motorcoach operator her for pushing to accomplish second stage of labor, during this process patient started suddenly hyperventilating, and then became unresponsive, rapid response code announced, during the evaluation and assessments of the patient by industrial locomotive operator, due to uncertainty concerning the baby's condition, I planed for emergency section under general anesthesia. Procedure date Jun 02, 2017 Procedure(s) Primary Performed by see signature line Assisting provider: ALICJA RAO M.D. Anesthesiologist: Juan Alberto Ansari M.D. Pre-procedure diagnosis Term second stage of labor maternal unresponsiveness to stimulation , concern baby's condition Anesthesia Type: general Procedure Description Under satisfactory [general] anesthesia, the patient was prepped and draped and placed in a supine position, tilted to the left. Pfannenstiel incision was made , carried through the subcutaneous tissue. Bleeders brought under control with electrocautery. Fascia incised to the length of the incision. Rectus muscles from the fascia, divided midline. Peritoneum exposed, entered through a transverse incision. Exploration of abdomen revealed gravid uterus. Normal- appearing tubes and ovaries bladder flap was developed. Transverse incision was made in the lower segment of the uterus. Amniotic sac ruptured. Scant amount of clear [] amniotic fluid noted. Light baby boy was delivered from occiput transverse [] Nasal oropharyngeal suction was performed. baby handed to the team for immediate attention. She received 20 units of Pitocin placenta was delivered manually intact. Send to pathology, uterine cavity was cleaned with wet sponge and drainage established. Uterus closed in 2 layers using [Monocryl #1] in continuous fashion. Peritoneal cavity irrigated with warm saline. Sponge, needle and instrument count reported to be correct. Abdominal peritoneum closed with [0 chromic catgut] continuously. Rectus muscle approximated with [0 chromic catgut]. Fascia closed with #1 PDS], sub cutaneous tissue approximated with few interrupted 2-0 chromic catgut skin closed with N sorb. Estimated blood loss [600 mL. Urine bag contained 200 []mL of clear urine. Post-Procedure Findings: Live Baby boy 7 and 9 ,baby waited 3580 g length 52.07 cm Estimated blood loss: other (600 cc) Specimen(s): no Grafts/Implants: no Complication(s): no Pt Condition post procedure: stable Physician Certification I, the undersigned physician, hereby certify that I have discussed the procedure described in this consent form with this patient (or the patient's legal renewals representative), including: * The risk and benefits of the procedure; * Any adverse reactions that may reasonably be expected to occur; * Any alternative efficacious methods of treatment which may be medically viable ; * The potential problems that may occur during recuperation; * Potential for blood transfusion and associated risks/benefits; and * Any research or economic interest I may have regarding this treatment. I further certify that the patient/legally responsible person was encouraged to ask question and that all questions were answered. TYLER DOWNEY MD Jun 02, 2017 16:27
--- NOTE | 2017-06-02 16:41 | OPR ---
Operative Report Planned Procedure Free Text/Dictation This is a 26 years old female SAB 1 EDC June 10, 2017 admitted to the hospital in active labor, she had uneventful first stage of labor, when cervical dilatation was complete her attending nurse tried to head wrestling coach her for pushing to accomplish second stage of labor, during this process patient started suddenly hyperventilating, and then became unresponsive, rapid response code announced, during the evaluation and assessments of the patient by contracts attorney, due to uncertainty concerning the baby's condition, I planed for emergency section under general anesthesia. Procedure date Jun 02, 2017 Procedure(s) Primary Performed by see signature line Assisting provider: ALICJA RAO M.D. Anesthesiologist: Juan Alberto Ansari M.D. Pre-procedure diagnosis Term second stage of labor maternal unresponsiveness to stimulation , concern baby's condition Anesthesia Type: general Procedure Description Under satisfactory [general] anesthesia, the patient was prepped and draped and placed in a supine position, tilted to the left. Pfannenstiel incision was made , carried through the subcutaneous tissue. Bleeders brought under control with electrocautery. Fascia incised to the length of the incision. Rectus muscles from the fascia, divided midline. Peritoneum exposed, entered through a transverse incision. Exploration of abdomen revealed gravid uterus. Normal- appearing tubes and ovaries bladder flap was developed. Transverse incision was made in the lower segment of the uterus. Amniotic sac ruptured. Scant amount of clear [] amniotic fluid noted. Light baby boy was delivered from occiput transverse [] Nasal oropharyngeal suction was performed. baby handed to the team for immediate attention. She received 20 units of Pitocin placenta was delivered manually intact. Send to pathology, uterine cavity was cleaned with wet sponge and drainage established. Uterus closed in 2 layers using [Monocryl #1] in continuous fashion. Peritoneal cavity irrigated with warm saline. Sponge, needle and instrument count reported to be correct. Abdominal peritoneum closed with [0 chromic catgut] continuously. Rectus muscle approximated with [0 chromic catgut]. Fascia closed with #1 PDS], sub cutaneous tissue approximated with few interrupted 2-0 chromic catgut skin closed with N sorb. Estimated blood loss [600 mL. Urine bag contained 200 []mL of clear urine. Post-Procedure Findings: Live Baby boy 7 and 9 ,baby waited 3580 g length 52.07 cm Estimated blood loss: other (600 cc) Specimen(s): no Grafts/Implants: no Complication(s): no Pt Condition post procedure: stable Physician Certification I, the undersigned physician, hereby certify that I have discussed the procedure described in this consent form with this patient (or the patient's legal representative personal service), including: * The risk and benefits of the procedure; * Any adverse reactions that may reasonably be expected to occur; * Any alternative efficacious methods of treatment which may be medically viable ; * The potential problems that may occur during recuperation; * Potential for blood transfusion and associated risks/benefits; and * Any research or economic interest I may have regarding this treatment. I further certify that the patient/legally responsible person was encouraged to ask question and that all questions were answered. TYLER DOWNEY MD Jun 02, 2017 16:27
[2017-06-02] MEDS ORDERED: IOHEXOL 100 ML ONE (16:47)
[2017-06-02] MEDS ORDERED: SOD CHLORIDE 0.9% 100 ML ONE (16:47)
--- NOTE | 2017-06-02 17:32 | RADRPT ---
PROCEDURE: CTA Chest and pulmonary angiogram. CLINICAL INDICATION: Chest pain and shortness of breath. TECHNIQUE: CT scan of the chest and CT pulmonary angiogram was performed on a multidetector high-r [employer] CT scanner. High-resolution thin slice coronal and sagittal imaging was obtained from the axial source images. 3-D volumetric rendered post processing was performed as well. The patient w as examined following the uncomplicated intravenous administration of 100 cc of Omnipaque-350. The i mages were reviewed on a PACS workstation. One or more of the following dose reduction techniques we re used: Automated exposure control, adjustment of the mA and/or kV according to patient size, use of iterative reconstruction technique. The total exam CTDI equals 14.08, 10.34 and the total exam D LP equals 353.03 mGy-cm. COMPARISON: None available. FINDINGS: CT chest: Minimal bilateral lower lobe dependent atelectatic changes are present. Focal 2 cm consolidation is present in the right upper lobe. Otherwise, the lungs are clear. No focal opacification, effusion , pneumothorax, edema, or nodules are seen. The central tracheobronchial tree is clear. The mediastinum is unremarkable without evidence for mass or lymphadenopathy. The vascular structur es of the mediastinum are normal in course and caliber. The heart size is normal without pericardia l thickening or effusion. The axillary, subpectoral, and supraclavicular regions are unremarkable. Trace ascites is noted in the upper abdomen. The surrounding chest wall is unremarkable. The osseou s structures are remarkable for degenerative spondylosis of the spine. CT pulmonary angiogram: No thrombus, clot, filling defect, or pulmonary web is identified. The pulmonary arteries are leoncio l in caliber and morphology. No filling defect is present to suggest pulmonary embolism. There is no evidence for pulmonary arterial hypertension. IMPRESSION: 1. No evidence for pulmonary embolism. 2. Focal 2 cm right upper lobe consolidation, concerning for pneumonia although mass is not ruled o ut. Follow-up to resolution is advised. 3. Mild ascites noted in the upper abdomen. RPTAT: HRAA .Marvin Contreras MD, MD Date Time Electronically viewed and signed by .Marvin Contreras MD, on 06/02/2017 17:32 .A/
[2017-06-02] MEDS ORDERED: MISOPROSTOL 200 MCG TAB PR PRN (20:00)
[2017-06-02] MEDS ORDERED: METHYLERGONOVINE 0.2 MG INJ IM PRN (20:00)
[2017-06-02] MEDS ORDERED: OXYCODONE/ACETAMINOPHEN (5/325) TAB PO PRN ×2 (20:00)
[2017-06-02] MEDS ORDERED: HYDROCODONE/APAP (5/325) TAB PO PRN (20:00)
[2017-06-02] MEDS ORDERED: CARBOPROST 250 MCG INJ IM PRN (20:00)
[2017-06-02] MEDS ORDERED: CEFAZOLIN 1 GM/50 ML (PMX) 50 ML IVPB SCH (20:00)
[2017-06-02] MEDS ORDERED: OXYTOCIN 30 UNITS/LR 500 ML IV PRN (20:00)
[2017-06-02] MEDS ORDERED: LANOLIN 7 GM TUBE TOP PRN (20:00)
[2017-06-02] MEDS: OXYTOCIN 30 UNITS/LR 500 ML IV SCH (21:58)
[2017-06-02] MEDS: HYDROCODONE/APAP (5/325) TAB PO PRN (21:59)
[2017-06-03] VITALS (23 sets, daily range): BP systolic 65–105; BP diastolic 45–69; PULSE 68–91; RESP 13–23
[2017-06-03] MEDS: KETOROLAC 30 MG INJ IV PRN (00:09)
[2017-06-03] MEDS: OXYTOCIN 30 UNITS/LR 500 ML IV SCH ×2 (02:21→06:46)
[2017-06-03] MEDS ORDERED: SOD CHLORIDE 0.9% 500 ML IV ONE ×3 (03:30→07:30)
[2017-06-03] MEDS: IBUPROFEN 600 MG TAB PO SCH ×3 (05:54→17:25)
[2017-06-03] MEDS: LACTATED RINGER'S 1,000 ML IV SCH (05:55)
[2017-06-03] MEDS: SENNA/DOCUSATE NA (8.6MG/50MG) TAB PO SCH ×2 (11:14→21:14)
[2017-06-03] MEDS ORDERED: POTASSIUM CHLORIDE 250 ML IVPB ONE (13:00)
--- NOTE | 2017-06-03 13:29 | QN ---
Documentation Comment day 1 Vital signs are rather stable pulses in mid 50s her blood pressures running mid 80s over 60s she is alert, responding to questions, her abdomen is soft bowel sounds present able to pass flatus, extremities normal, her CT angiogram normal , ambulation encouraged Recommended to transfer patient from ICU to 3 W. . TYLER DOWNEY MD Jun 03, 2017 13:29
--- NOTE | 2017-06-03 13:37 | PN ---
Date/Time of Note Date/Time of Note DATE: 06/03/17 TIME: 13:36 Assessment/Plan VTE Prophylaxis VTE Prophylaxis Intervention: heparin Lines/Catheters IV [facility]from [facility] Peripheral IV Urinary Cath still in place: No Assessment/Plan Chief Complaint/Hosp Course 27 yo female with epsiode of respiratory distress, lightheadedness, and tachycardia, now resolved - Suspect this had to do with stress of baby delivery, CT-Angio negative for PE - Ok for discharge from my perspective - No clear need for ICU level of care Problems: Subjective 24 Hr Interval Summary Free Text/Dictation CT-Angio negative for PE, did show possible PNA but clinically patient without pneumonia Has pain in pelvis No telemetry events Exam/Review of Systems Vital Signs Vitals Vital Signs Date Time Temp Pulse Resp B/P Pulse Ox O2 Delivery O2 Flow Rate FiO2 06/03/17 11:00 98.1 68 16 81/50 97 Room Air Intake and Output 06/02/17 06/02/17 06/03/17 15:00 23:00 07:00 Intake Total 631 ml 2025 ml 2650 ml Output Total 2050 ml 2000 ml 325 ml Balance -1419 ml 25 ml 2325 ml Exam Constitutional: alert, oriented, well developed Psych: nl mood/affect, no complaints Head: atraumatic, normocephalic Eyes: EOMI, PERRL, nl conjunctiva, nl lids, nl sclera ENMT: nl external ears & nose, nl lips & teeth, nl nasal mucosa & septum Neck: non-tender, supple Respiratory: clear to auscultation, normal air movement Cardiovascular: nl pulses, regular rate and rhythm Gastrointestinal: nl liver, spleen, non-tender, soft Musculoskeletal: nl extremities to inspection, nl gait and stance Extremities: normal pulses Neurological: CIGARETTE INSPECTOR II-XII intact, nl mental status, nl speech, nl strength Skin: nl turgor, No rash or lesions Lymph: nl lymph nodes Results Result Diagram: 06/03/17 1130 06/02/17 1514 Results 24 hrs Laboratory Tests Test 06/02/17 15:14 06/03/17 05:00 06/03/17 11:30 Sodium Level 139 Potassium Level 3.4 L Chloride Level 108 Carbon Dioxide Level 20 L Anion Gap 14 Blood Urea Nitrogen 5 L Creatinine 0.56 Glucose Level 112 Calcium Level 8.3 L White Blood Count 12.4 H 12.4 H Red Blood Count 3.08 #L 3.18 L Hemoglobin 9.1 #L 9.7 L Hematocrit 27.5 #L 29.1 L Mean Corpuscular Volume 89.3 91.5 Mean Corpuscular Hemoglobin 29.5 30.5 Mean Corpuscular Hemoglobin Concent 33.1 33.3 Red Cell Distribution Width 14.5 14.4 Platelet Count 190 # 193 Mean Platelet Volume 10.7 H 10.8 H Neutrophils % 79.8 H 75.9 Lymphocytes % 12.9 L 15.2 Monocytes % 5.8 6.7 Eosinophils % 0.8 1.5 Basophils % 0.2 0.2 Nucleated Red Blood Cells % 0.0 0.0 Neutrophils # 9.9 H 9.4 H Lymphocytes # 1.6 1.9 Monocytes # 0.7 0.8 Eosinophils # 0.1 0.2 Basophils # 0.0 0.0 Nucleated Red Blood Cells # 0.0 0.0 Medications Medications Current Medications Lactated Ringer's (Lr) 1,000 ml @ 125 mls/hr Q8H IV Last administered on 05:55; Admin Dose 125 MLS/HR; Start 06/01/17 at 07:55 Butorphanol Tartrate (Stadol) 2 mg Q2H PRN IV PAIN Last administered on 17:47; Admin Dose 2 MG; Start 06/01/17 at 08:00 Lidocaine (Xylocaine 1% (Mpf)) 30 ml ONCE PRN INJ EPISIOTOMY/TEARING; Start at 08:00 Ibuprofen (Motrin) 600 mg ONCE PRN PO Mild Pain (Pain Score 1-3); Start at 08:00 Acetaminophen/ Hydrocodone Bitart ([place] (5/325)) 1 tab Q4H PRN PO PAIN LEVEL 4 -6; Start 06/02/17 at 20:00 Acetaminophen/ Hydrocodone Bitart ([place] (5/325)) 2 tab Q4H PRN PO PAIN LEVEL 7 -10 Last administered on 06/02/17 21:59; Admin Dose 2 TAB; Start 06/02/17 at 20:00 Oxycodone/ Acetaminophen (Percocet (5/ 325)) 1 tab Q4H PRN PO PAIN LEVEL 4-6; Start 06/02/17 at 20:00 Oxycodone/ Acetaminophen (Percocet (5/ 325)) 2 tab Q4H PRN PO PAIN LEVEL 7-10 Last administered on 06/03/17 01:34; Admin Dose 2 TAB; Start 06/02/17 at 20:00 Ibuprofen (Motrin) 600 mg Q6 PO Last administered on 06/03/17 11:13; Admin Dose 600 MG; Start 06/03/17 at 06:00 Simethicone (Mylicon) 160 mg Q8H PRN PO DISTENSION/GAS/BLOATING; Start at 20:00 Senna/Docusate Sodium (Senokot-S) 1 tab BID PO Last administered on 06/03/17 11:14; Admin Dose 1 TAB; Start 06/03/17 at 09:00 Diphtheria/ Tetanus/Acell Pertussis (Adacel) 0.5 ml ONCE ONCE IM* ; Start at 09:00; Stop 06/05/17 at 09:01 Methylergonovine Maleate (Methergine) 0.2 mg ONCE PRN IM VAGINAL BLEEDING; Start 06/02/17 at 20:00 Carboprost Tromethamine (Hemabate) 250 mcg ONCE PRN IM VAGINAL BLEEDING; Start 06/02/17 at 20:00 Misoprostol 1000 mcg 1,000 mcg ONCE PRN MA VAGINAL BLEEDING; Start 06/02/17 at 20:00 Potassium Chloride (KCl 40 MEQ/250 ML NS) 250 ml @ 62.5 mls/hr ONCE ONCE IVPB ; Start 06/03/17 at 13:00; Stop 06/03/17 at 16:59 MARGARITA FITZGERALD MD Jun 03, 2017 13:37
--- NOTE | 2017-06-03 13:37 | PN ---
Date/Time of Note Date/Time of Note DATE: 06/03/17 TIME: 13:36 Assessment/Plan VTE Prophylaxis VTE Prophylaxis Intervention: heparin Lines/Catheters [facility] Peripheral IV Urinary Cath still in place: No Assessment/Plan Chief Complaint/Hosp Course 27 yo female with epsiode of respiratory distress, lightheadedness, and tachycardia, now resolved - Suspect this had to do with stress of baby delivery, CT-Angio negative for PE - Ok for discharge from my perspective - No clear need for ICU level of care Problems: Subjective 24 Hr Interval Summary Free Text/Dictation CT-Angio negative for PE, did show possible PNA but clinically patient without pneumonia Has pain in pelvis No telemetry events Exam/Review of Systems Vital Signs Vitals Vital Signs Date Time Temp Pulse Resp B/P Pulse Ox O2 Delivery O2 Flow Rate FiO2 06/03/17 11:00 98.1 68 16 81/50 97 Room Air Intake and Output 06/02/17 06/02/17 06/03/17 15:00 23:00 07:00 Intake Total 631 ml 2025 ml 2650 ml Output Total 2050 ml 2000 ml 325 ml Balance -1419 ml 25 ml 2325 ml Exam Constitutional: alert, oriented, well developed Psych: nl mood/affect, no complaints Head: atraumatic, normocephalic Eyes: EOMI, PERRL, nl conjunctiva, nl lids, nl sclera ENMT: nl external ears & nose, nl lips & teeth, nl nasal mucosa & septum Neck: non-tender, supple Respiratory: clear to auscultation, normal air movement Cardiovascular: nl pulses, regular rate and rhythm Gastrointestinal: nl liver, spleen, non-tender, soft Musculoskeletal: nl extremities to inspection, nl gait and stance Extremities: normal pulses Neurological: WATER RECLAMATION SYSTEMS OPERATOR II-XII intact, nl mental status, nl speech, nl strength Skin: nl turgor, No rash or lesions Lymph: nl lymph nodes Results Result Diagram: 06/03/17 1130 06/02/17 1514 Results 24 hrs Laboratory Tests Test 06/02/17 15:14 06/03/17 05:00 06/03/17 11:30 Sodium Level 139 Potassium Level 3.4 L Chloride Level 108 Carbon Dioxide Level 20 L Anion Gap 14 Blood Urea Nitrogen 5 L Creatinine 0.56 Glucose Level 112 Calcium Level 8.3 L White Blood Count 12.4 H 12.4 H Red Blood Count 3.08 #L 3.18 L Hemoglobin 9.1 #L 9.7 L Hematocrit 27.5 #L 29.1 L Mean Corpuscular Volume 89.3 91.5 Mean Corpuscular Hemoglobin 29.5 30.5 Mean Corpuscular Hemoglobin Concent 33.1 33.3 Red Cell Distribution Width 14.5 14.4 Platelet Count 190 # 193 Mean Platelet Volume 10.7 H 10.8 H Neutrophils % 79.8 H 75.9 Lymphocytes % 12.9 L 15.2 Monocytes % 5.8 6.7 Eosinophils % 0.8 1.5 Basophils % 0.2 0.2 Nucleated Red Blood Cells % 0.0 0.0 Neutrophils # 9.9 H 9.4 H Lymphocytes # 1.6 1.9 Monocytes # 0.7 0.8 Eosinophils # 0.1 0.2 Basophils # 0.0 0.0 Nucleated Red Blood Cells # 0.0 0.0 Medications Medications Current Medications Lactated Ringer's (Lr) 1,000 ml @ 125 mls/hr Q8H IV Last administered on 05:55; Admin Dose 125 MLS/HR; Start 06/01/17 at 07:55 Butorphanol Tartrate (Stadol) 2 mg Q2H PRN IV PAIN Last administered on 17:47; Admin Dose 2 MG; Start 06/01/17 at 08:00 Lidocaine (Xylocaine 1% (Mpf)) 30 ml ONCE PRN INJ EPISIOTOMY/TEARING; Start at 08:00 Ibuprofen (Motrin) 600 mg ONCE PRN PO Mild Pain (Pain Score 1-3); Start at 08:00 Acetaminophen/ Hydrocodone Bitart ([place] (5/325)) 1 tab Q4H PRN PO PAIN LEVEL 4 -6; Start 06/02/17 at 20:00 Acetaminophen/ Hydrocodone Bitart ([place] (5/325)) 2 tab Q4H PRN PO PAIN LEVEL 7 -10 Last administered on 06/02/17 21:59; Admin Dose 2 TAB; Start 06/02/17 at 20:00 Oxycodone/ Acetaminophen (Percocet (5/ 325)) 1 tab Q4H PRN PO PAIN LEVEL 4-6; Start 06/02/17 at 20:00 Oxycodone/ Acetaminophen (Percocet (5/ 325)) 2 tab Q4H PRN PO PAIN LEVEL 7-10 Last administered on 06/03/17 01:34; Admin Dose 2 TAB; Start 06/02/17 at 20:00 Ibuprofen (Motrin) 600 mg Q6 PO Last administered on 06/03/17 11:13; Admin Dose 600 MG; Start 06/03/17 at 06:00 Simethicone (Mylicon) 160 mg Q8H PRN PO DISTENSION/GAS/BLOATING; Start at 20:00 Senna/Docusate Sodium (Senokot-S) 1 tab BID PO Last administered on 06/03/17 11:14; Admin Dose 1 TAB; Start 06/03/17 at 09:00 Diphtheria/ Tetanus/Acell Pertussis (Adacel) 0.5 ml ONCE ONCE IM* ; Start at 09:00; Stop 06/05/17 at 09:01 Methylergonovine Maleate (Methergine) 0.2 mg ONCE PRN IM VAGINAL BLEEDING; Start 06/02/17 at 20:00 Carboprost Tromethamine (Hemabate) 250 mcg ONCE PRN IM VAGINAL BLEEDING; Start 06/02/17 at 20:00 Misoprostol 1000 mcg 1,000 mcg ONCE PRN AL VAGINAL BLEEDING; Start 06/02/17 at 20:00 Potassium Chloride (KCl 40 MEQ/250 ML NS) 250 ml @ 62.5 mls/hr ONCE ONCE IVPB ; Start 06/03/17 at 13:00; Stop 06/03/17 at 16:59 MARGARITA FITZGERALD MD Jun 03, 2017 13:37
[2017-06-03] MEDS: HYDROCODONE/APAP (5/325) TAB PO PRN ×2 (14:29→17:54)
[2017-06-03] MEDS ORDERED: INFLUENZA VIRUS VACCINE 0.5 ML (DISPENSING) IM* ONE (20:00)
[2017-06-04] VITALS: BP 92/66; PULSE 73; RESP 21
[2017-06-04] MEDS: IBUPROFEN 600 MG TAB PO SCH ×5 (00:16→23:43)
[2017-06-04 04:00] VITALS: BP 90/52; PULSE 72; RESP 18
[2017-06-04 08:10] VITALS: BP 98/63; PULSE 75; RESP 18
[2017-06-04] MEDS: SENNA/DOCUSATE NA (8.6MG/50MG) TAB PO SCH ×2 (09:32→21:28)
[2017-06-04] MEDS: HYDROCODONE/APAP (5/325) TAB PO PRN (09:33)
--- NOTE | 2017-06-04 10:10 | QN ---
Documentation Comment Postop day 2 Afebrile Vital signs are stable Abdomen soft, bowel sounds present, incision healing well and dry, no bowel movement, extremities normal Ambulation encouraged TYLER DOWNEY MD Jun 04, 2017 10:10
[2017-06-04] MEDS ORDERED: NA PHOSPHATE/BIPHOS 133 ML ENEMA PR ONE (10:30)
[2017-06-04 16:05] VITALS: BP 112/71; PULSE 70
[2017-06-04] MEDS ORDERED: INFLUENZA VIRUS VACCINE 0.5 ML (DISPENSING) IM* ONE (18:30)
[2017-06-04 19:40] VITALS: BP 103/74; PULSE 82
[2017-06-05 04:00] VITALS: BP 109/70; PULSE 72; RESP 19
[2017-06-05] MEDS: IBUPROFEN 600 MG TAB PO SCH ×2 (06:09→11:33)
[2017-06-05 08:40] VITALS: BP 121/73; PULSE 59
[2017-06-05] MEDS: SENNA/DOCUSATE NA (8.6MG/50MG) TAB PO SCH (09:00)
[2017-06-05] MEDS ORDERED: DIPHTH/TET/ACEL PERTUSS (ADULT) 0.5 ML VIAL IM* ONE (09:00)
--- NOTE | 2017-06-05 16:38 | PD.PPDC ---
ASSEMBLER METAL FURNITURE Discharge Instruction Provider Information Physician Information This is a 27 years old female admitted to [facility] in labor, her first stage of labor was quite uneventful, at the start of the second stage of labor when cervix was completely dilated the attending nurse was trying to head tennis coach her and teach her how to push and breath during the second stage of labor she suddenly started hyperventilating and became unresponsive only for a short period, she underwent an emergency section, later on she did very well after her surgery no more panic attack, responding well to questions and seems quite normal, post section instructions given to her and recommended to be seen at the clinic in 1 week Diagnosis Final Diagnosis: Post primary date 3 Condition Patient Condition: Good Diet Diet: Resume Regular Diet Wound/Drain Care Instructions Wound/Drain Care Instructions: Remove Steri Strips in 1 week Wash with soap and water Keep clean and dry Follow-up Follow-up with Physician: 1, Week/Weeks Provider Information: Post instructions given recommended to make appointment to be seen at the clinic in 1 week Return to clinic for MUSIC VIDEO PRODUCER Instructions: Fever greater than 101 Chills Worsening abdominal pain Excessive Vaginal Bleeding More than 2 pads per hour Unable to tolerate diet OB Instructions: Breast Tenderness Depression Blurried Vision Headache Surgical Instructions: Incisional Drainage Incisional Redness TYLER DOWNEY MD Jun 05, 2017 16:38
--- NOTE | 2017-06-05 16:38 | PD.PPDC ---
PRODUCT DIRECTOR Discharge Instruction Provider Information Physician Information This is a 27 years old female admitted to [facility] in labor, her first stage of labor was quite uneventful, at the start of the second stage of labor when cervix was completely dilated the attending nurse was trying to womens volleyball coach her and teach her how to push and breath during the second stage of labor she suddenly started hyperventilating and became unresponsive only for a short period, she underwent an emergency section, later on she did very well after her surgery no more panic attack, responding well to questions and seems quite normal, post section instructions given to her and recommended to be seen at the clinic in 1 week Diagnosis Final Diagnosis: Post primary date 3 Condition Patient Condition: Good Diet Diet: Resume Regular Diet Wound/Drain Care Instructions Wound/Drain Care Instructions: Remove Steri Strips in 1 week Wash with soap and water Keep clean and dry Follow-up Follow-up with Physician: 1, Week/Weeks Provider Information: Post instructions given recommended to make appointment to be seen at the clinic in 1 week Return to clinic for MARKETING STRATEGY ANALYST Instructions: Fever greater than 101 Chills Worsening abdominal pain Excessive Vaginal Bleeding More than 2 pads per hour Unable to tolerate diet OB Instructions: Breast Tenderness Depression Blurried Vision Headache Surgical Instructions: Incisional Drainage Incisional Redness TYLER DOWNEY MD Jun 05, 2017 16:38
--- NOTE | 2017-06-05 16:38 | PD.PPDC ---
DISPATCHER RELAY Discharge Instruction Provider Information Physician Information This is a 27 years old female admitted to [facility] in labor, her first stage of labor was quite uneventful, at the start of the second stage of labor when cervix was completely dilated the attending nurse was trying to head golf coach her and teach her how to push and breath during the second stage of labor she suddenly started hyperventilating and became unresponsive only for a short period, she underwent an emergency section, later on she did very well after her surgery no more panic attack, responding well to questions and seems quite normal, post section instructions given to her and recommended to be seen at the clinic in 1 week Diagnosis Final Diagnosis: Post primary date 3 Condition Patient Condition: Good Diet Diet: Resume Regular Diet Wound/Drain Care Instructions Wound/Drain Care Instructions: Remove Steri Strips in 1 week Wash with soap and water Keep clean and dry Follow-up Follow-up with Physician: 1, Week/Weeks Provider Information: Post instructions given recommended to make appointment to be seen at the clinic in 1 week Return to clinic for BIOINFORMATICS TECHNICIAN Instructions: Fever greater than 101 Chills Worsening abdominal pain Excessive Vaginal Bleeding More than 2 pads per hour Unable to tolerate diet OB Instructions: Breast Tenderness Depression Blurried Vision Headache Surgical Instructions: Incisional Drainage Incisional Redness TYLER DOWNEY MD Jun 05, 2017 16:38
--- NOTE | 2017-06-05 16:52 | DS ---
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 Hospital Course 27 yo female with epsiode of respiratory distress, lightheadedness, and tachycardia, now resolved - Suspect this had to do with stress of baby delivery, CT-Angio negative for PE - Ok for discharge from my perspective - No clear need for ICU level of care June 05, 2017 at 1645 Patient did quite well post section ,with normal behavior no more panic attack ,satisfactory recovery. On third postoperative day incision inspected seemed healing well, her abdomen was soft, good bowel sounds, had normal bowel movement, discharged home with follow-up instruction to be seen at the clinic in 1 week Home Meds Reported Medications Ferrous Sulfate (Iron) 134 Mg Tablet, 134 MG PO, TAB 03/29/17 Vit No.124/Iron/FA ( Vitamin Tablet) 1 Each Tablet, 1 EACH PO DAILY, TAB 03/29/17 Follow-up Plan Post instructions given recommended to be seen at the clinic in 1 week Primary Care Provider Care Physician No Primary Time spent on discharge: < 30 minutes TYLER DOWNEY MD Jun 05, 2017 16:49
== END 2017-06-05 17:34 | disposition home or self-care (01) | DRG 766 ==
LOC: L-D 04:00 → OBT 04:00 → L-D 07:40 → OBT 07:58 → L-D 06-02 11:27 → ICU 06-02 12:56 → PP1 06-03 14:58
PROVIDERS: ADMIT Obstetrics & Gynecology; ATTEND Obstetrics & Gynecology
PROC: 10D00Z1 Extraction of Products of Conception, Low, Open Approach (ICD-10-PCS; principal; 2017-06-01)
DX: O75.89 Other specified complications of labor and delivery (principal); F41.0 Panic disorder [episodic paroxysmal anxiety]; O75.0 Maternal distress during labor and delivery; R06.4 Hyperventilation; Z37.0 Single live birth; Z3A.38 38 weeks gestation of pregnancy
CPT/HCPCS: 36415; 36600; 62319; 71275; 76818; 80048; 82803; 82962; 85025; 85610; 85730; 86592; 86850; 86900; 86901; 86920; 87081; 87340; 88307; 90686; 90715; 93005; 99464; G0463; J0595; J0690; J1200; J1885; J2210; J2270; J2274; J2370; J2405; J2590; J2710; J3010; J3480; J7040; J7120; Q9967

== ENCOUNTER 2017-06-15 03:13 | Inpatient (IN) | payer MEDICAID ==
[~2017-06-15] VITALS: Ht 154.9 cm; Wt 72.3 kg
[~2017-06-15 03:13] MED LIST changes: -PHENYLephrine (100 MCG/ML) 5ML SYG ONE
[2017-06-15] MEDS ORDERED: ONDANSETRON 4 MG INJ IV STA (03:17)
[2017-06-15] MEDS ORDERED: morphine 4 MG/ML VIAL IV STA ×2 (03:17→06:04)
[2017-06-15] MEDS ORDERED: SOD CHLORIDE 0.9% 500 ML IV STA (03:17)
[2017-06-15 04:12] LABS: ADD UMIC YES; UR ASCORBIC ACID NEGATIVE (NEGATIVE); UR BILIRUBIN (Dip) NEGATIVE (NEGATIVE); UR BLOOD (Dip) 2+ mg/dL (NEGATIVE); UR CLARITY CLEAR (CLEAR); UR COLOR STRAW (YELLOW); UR GLUCOSE (Dip) NEGATIVE (NEGATIVE); UR KETONES (Dip) NEGATIVE (NEGATIVE); UR LEUKOCYTE ESTERASE (Dip) 1+ Leu/ul (NEGATIVE); UR NITRITE (Dip) NEGATIVE (NEGATIVE); UR RBC 1 /HPF (0-5); UR SPECIFIC GRAVITY (Dip) 1.008 (1.003-1.030); UR TOTAL PROTEIN (Dip) NEGATIVE (NEGATIVE); UR UROBILINOGEN (Dip) NEGATIVE (NEGATIVE)
--- NOTE | 2017-06-15 04:16 | RADRPT ---
PROCEDURE: CT of the abdomen and pelvis without contrast CLINICAL INDICATION: Abdominal pain TECHNIQUE: Spiral CT images through the abdomen and pelvis without the use of contrast. The admin istered radiation dose is CTDI 10.47 mGy and DLP 598 mGy*cm. Coronal and sagittal reformatted image s were submitted. One or more of the following dose reduction techniques were used: automated expos ure control, adjustment of the mA and/or kV according to patient size, or use of iterative reconstru ction technique. DICOM images are available. COMPARISON: None FINDINGS: Lack of oral and intravenous contrast somewhat limits evaluation. The lung bases are clear. No pl eural or pericardial effusion is seen.. The liver, spleen, adrenal glands and pancreas are normal in appearance. There is evidence of cholel ithiasis or biliary ductal dilatation. The kidneys are normal in size and contour. The renal pelves are prominent. There is no evidence of obstructive uropathy. The aorta is normal in caliber.. There is no evidence for bowel obstruction, free air, or abscess. The appendix is normal in appearance. . The colon is fecal filled. No adenopathy or ascites is seen. The uterus is enlarged. The ovaries a re identified. There is postsurgical changes related to recent with subcutaneous edema and skin thickening.. The bladder is distended. There is trace pelvic free fluid.. The osseous structur es are intact. IMPRESSION: No definite acute abnormality of the abdomen or pelvis. Enlarged uterus. Postsurgical changes related to recent . RPTAT: HCNS Physician Amando Date Time Electronically viewed and signed by Physician Amando on 06/15/2017 04:16 CS/
[2017-06-15 04:32] LABS: ALBUMIN 3.9 g/dl (3.3-4.9); ALBUMIN/GLOBULIN RATIO 1.08; BILIRUBIN,INDIRECT 0.1 mg/dl (0-1.1); BILIRUBIN,TOTAL 0.1 mg/dl (0.2-1.3); CALCIUM 9.2 mg/dl (8.4-10.2); CREATININE 0.78 mg/dl (0.44-1.00); POTASSIUM 3.9 mmol/L (3.5-5.1); TOTAL PROTEIN 7.5 g/dl (6.1-8.1)
[2017-06-15 04:37] LABS: BASOPHILS % 0.2 % (0.0-2.0); EOSINOPHILS # 0.2 10^3/ul (0.0-0.5); EOSINOPHILS % 2.5 % (0.0-7.0); HEMATOCRIT 36.5 % (37.0-47.0); HEMOGLOBIN 11.8 g/dl (12.0-16.0); LYMPHOCYTES # 2.8 10^3/ul (0.8-2.9); LYMPHOCYTES % 32.1 % (15.0-51.0); MEAN CORPUSCULAR HEMOGLOBIN 29.4 pg (29.0-33.0); MEAN CORPUSCULAR HGB CONC 32.3 g/dl (32.0-37.0); MEAN CORPUSCULAR VOLUME 90.8 fl (82.0-101.0); MEAN PLATELET VOLUME 9.6 fl (7.4-10.4); MONOCYTE # 0.6 10^3/ul (0.3-0.9); MONOCYTES % 6.8 % (0.0-11.0); NEUTROPHIL # 5.1 10^3/ul (1.6-7.5); NEUTROPHILS % 57.9 % (39.0-77.0); PLATELET COUNT 523 10^3/UL (140-415); RED BLOOD COUNT 4.02 10^6/ul (4.20-5.40); RED CELL DISTRIBUTION WIDTH 13.5 % (11.5-14.5); WHITE BLOOD COUNT 8.8 10^3/ul (4.8-10.8)
[2017-06-15] MEDS ORDERED: SOD CHLORIDE 0.9% 1,000 ML IV ONE (05:30)
--- NOTE | 2017-06-15 05:40 | ERD ---
ER Documentation Chief Complaint Chief Complaint [facility] for abd pain and CP. HPI This is a 27-year-old female brought in by ambulance for abdominal pain. Abdominal pain is epigastric region. Pain is mild to moderate intensity mild nausea no vomiting. Patient is two-week status post . No fevers no chills. No other current complaints. ROS All systems reviewed and are negative except as per history of present illness. Medications Home Meds Reported Medications Ferrous Sulfate (Iron) 134 Mg Tablet, 134 MG PO, TAB 03/29/17 Vit No.124/Iron/FA ( Vitamin Tablet) 1 Each Tablet, 1 EACH PO DAILY, TAB 03/29/17 Allergies Allergies: Coded Allergies: No Known Allergy (Unverified , 06/01/17) PMhx/Soc History of Surgery: Yes () Anesthesia Reaction: No Hx Neurological Disorder: No Hx Respiratory Disorders: No Hx Cardiac Disorders: No Hx Psychiatric Problems: No Hx Miscellaneous Medical Probl: Yes (OVERWEIGHT) Hx Alcohol Use: No Hx Substance Use: No Hx Tobacco Use: No Smoking Status: Never smoker Physical Exam Vitals Vital Signs Date Time Temp Pulse Resp B/P Pulse Ox O2 Delivery O2 Flow Rate FiO2 06/15/17 04:51 64 20 103/70 98 Room Air 06/15/17 03:20 98.9 68 18 100/67 100 Physical Exam Const: [] Head: Atraumatic Eyes: Normal Conjunctiva ENT: Normal External Ears, Nose and Mouth. Neck: Full range of motion..~ No meningismus. Resp: Clear to auscultation bilaterally Cardio: Regular rate and rhythm, no murmurs Abd: Soft, non tender, non distended. Normal bowel sounds Skin: times score is clean dry and intact without sign of infection Back: No midline or flank tenderness Ext: No cyanosis, or edema Neur: Awake and alert Psych: Normal Mood and Affect Result Diagram: 06/15/17 0330 06/15/17 0330 Results 24 hrs Laboratory Tests Test 06/15/17 03:30 White Blood Count 8.810^3/ul Red Blood Count 4.0210^6/ul Hemoglobin 11.8g/dl Hematocrit 36.5% Mean Corpuscular Volume 90.8fl Mean Corpuscular Hemoglobin 29.4pg Mean Corpuscular Hemoglobin Concent 32.3g/dl Red Cell Distribution Width 13.5% Platelet Count 77849^3/UL Mean Platelet Volume 9.6fl Neutrophils % 57.9% Lymphocytes % 32.1% Monocytes % 6.8% Eosinophils % 2.5% Basophils % 0.2% Nucleated Red Blood Cells % 0.0/100WBC Neutrophils # 5.110^3/ul Lymphocytes # 2.810^3/ul Monocytes # 0.610^3/ul Eosinophils # 0.210^3/ul Basophils # 0.010^3/ul Nucleated Red Blood Cells # 0.010^3/ul Urine Color STRAW Urine Clarity CLEAR Urine pH 7.0 Urine Specific [place] 1.008 Urine Ketones NEGATIVEmg/dL Urine Nitrite NEGATIVEmg/dL Urine Bilirubin NEGATIVEmg/dL Urine Urobilinogen NEGATIVEmg/dL Urine Leukocyte Esterase 1+Delores/ul Urine Microscopic RBC 1/HPF Urine Microscopic WBC 9/HPF Urine Hemoglobin 2+mg/dL Urine Glucose NEGATIVEmg/dL Urine Total Protein NEGATIVEmg/dl Sodium Level 143mmol/L Potassium Level 3.9mmol/L Chloride Level 106mmol/L Carbon Dioxide Level 26mmol/L Anion Gap 15 Blood Urea Nitrogen 17mg/dl Creatinine 0.78mg/dl Glucose Level 90mg/dl Calcium Level 9.2mg/dl Total Bilirubin 0.1mg/dl Direct Bilirubin 0.00mg/dl Indirect Bilirubin 0.1mg/dl Aspartate Amino Transf (AST/SGOT) 37IU/L Alanine Aminotransferase (ALT/SGPT) 47IU/L Alkaline Phosphatase 105IU/L Total Protein 7.5g/dl Albumin 3.9g/dl Globulin 3.60g/dl Albumin/Globulin Ratio 1.08 Lipase 1327U/L Current Medications Medications (Trade) Dose Ordered Sig/Juan Route PRN Reason Start Time Stop Time Status Last Admin Dose Admin Sodium Chloride (NS) 500 ml @ 500 mls/hr Q1H STAT IV 06/15/17 03:17 06/15/17 04:16 DC 06/15/17 03:40 Morphine Sulfate (morphine) 4 mg ONCE STAT IV 06/15/17 03:17 06/15/17 03:18 DC 06/15/17 03:40 Ondansetron HCl 4 mg 4 mg ONCE STAT IV 06/15/17 03:17 06/15/17 03:18 DC 06/15/17 03:40 Sodium Chloride (NS) 1,000 ml @ 1,000 mls/hr Q1H ONCE IV 06/15/17 05:30 06/15/17 06:29 06/15/17 05:21 Procedures/MDM Medical decision-makin-year-old female comes in with looks to be acute pancreatitis of uncertain etiology. Patient be admitted to hospitalist for the evaluation and management Departure Diagnosis: Primary Impression: Abdominal pain Abdominal location: generalized Qualified Code: R10.84 - Generalized abdominal pain Additional Impression: Pancreatitis Chronicity: acute Pancreatitis type: unspecified pancreatitis type Acute pancreatitis complication: unspecified Qualified Code: K85.90 - Acute pancreatitis, unspecified complication status, unspecified pancreatitis type Condition: Serious LAURITA CLEMENT Jun 15, 2017 05:40
[2017-06-15 06:10] VITALS: TEMP 98.2
[2017-06-15] MEDS ORDERED: ONDANSETRON 4 MG INJ IV PRN (06:30)
[2017-06-15] MEDS: DEXTROSE 5%-0.45% NACL 1,000 ML IV SCH ×2 (06:49→18:59)
[2017-06-15 06:55] VITALS: BP 99/61; PULSE 54; RESP 18; Ht 154.9 cm; Wt 72.3 kg
[2017-06-15 07:07] VITALS: BP 105/56; RESP 18
--- NOTE | 2017-06-15 07:10 | HP ---
Date/Time of Note Date/Time of Note DATE: 06/15/17 TIME: 07:06 Assessment/Plan VTE Prophylaxis VTE Prophylaxis Intervention: SCD's Assessment/Plan Assessment/Plan ASSESSMENT 27-year-old female who is 2 weeks with delivery presents with abdominal pain and found to have acute pancreatitis. CT abdomen/pelvis nondiagnostic. PLAN Keep n.p.o. with IV fluid Pain management Check triglyceride Need additional information when patient is more awake, then additional workup including for autoimmune pancreatitis will be done as needed HPI/ROS Admit Date/Time Admit Date/Time Jun 15, 2017 at 05:38 Hx of Present Illness This is a 27-year-old female 2 weeks status post who presents emergency department with abdominal pain. Patient is currently very lethargic with the pain medication that she received. She was barely arousable and as such she was not able to give a meaningful history. Initially she said she was having this problem for 12 years and that she is a 4 years and at the end she said 2 days. When I asked whether or not she drinks alcohol, she said no. Unfortunately, I am not able to gather additional information. Her home medication includes vitamin and iron. According to ER, pain is is mainly in the epigastric area with associated nausea and nonbilious nonbloody vomiting. When she presented to the ER vitals were stable. Labs shows a lipase of 1300. Liver chemistries are within normal limits. CT abdomen pelvis shows enlarged uterus otherwise no acute findings. . PMH/Family/Social Social History Smoking Status: Never smoker Exam/Review of Systems Vital Signs Vitals Vital Signs Date Time Temp Pulse Resp B/P Pulse Ox O2 Delivery O2 Flow Rate FiO2 06/15/17 06:55 98.7 54 18 99/61 98 Room Air Exam Constitutional: alert, oriented, well developed Head: atraumatic, normocephalic Respiratory: clear to auscultation, normal air movement Cardiovascular: nl pulses, regular rate and rhythm Gastrointestinal: soft, surgical scars, tender Extremities: normal pulses Labs Result Diagram: 06/15/1732906/15/17 033 Medications Medications Current Medications Dextrose/Sodium Chloride (D5-1/2ns) 1,000 ml @ 100 mls/hr Q10H IV Last administered on 06/15/17t 06:49; Admin Dose 100 MLS/HR; Start 06/15/17 at 06: 30 Morphine Sulfate (morphine) 3 mg Q4H PRN IV PAIN; Start 06/15/17 at 06:30 Ondansetron HCl (Zofran Inj) 4 mg Q6H PRN IV NAUSEA AND/OR VOMITING; Start at 06:30 LAURITA BANGURA MD Jun 15, 2017 07:10
[2017-06-15 08:51] LABS: CHOL/HDL RATIO 3.9 RATIO
[2017-06-15] MEDS: morphine 4 MG/ML VIAL IV PRN ×2 (09:43→15:49)
[2017-06-15 15:13] VITALS: BP 96/64; RESP 16
[2017-06-15 20:00] VITALS: BP 91/57; RESP 18
[2017-06-16 02:13] VITALS: BP 90/50; RESP 18
[2017-06-16] MEDS: DEXTROSE 5%-0.45% NACL 1,000 ML IV SCH ×2 (02:30→07:15)
[2017-06-16 05:18] LABS: BASOPHILS % 0.3 % (0.0-2.0); EOSINOPHILS # 0.2 10^3/ul (0.0-0.5); EOSINOPHILS % 3.2 % (0.0-7.0); HEMATOCRIT 38.1 % (37.0-47.0); HEMOGLOBIN 12.6 g/dl (12.0-16.0); LYMPHOCYTES # 2.1 10^3/ul (0.8-2.9); LYMPHOCYTES % 33.6 % (15.0-51.0); MEAN CORPUSCULAR HEMOGLOBIN 29.8 pg (29.0-33.0); MEAN CORPUSCULAR HGB CONC 33.1 g/dl (32.0-37.0); MEAN CORPUSCULAR VOLUME 90.1 fl (82.0-101.0); MEAN PLATELET VOLUME 9.4 fl (7.4-10.4); MONOCYTE # 0.5 10^3/ul (0.3-0.9); NEUTROPHIL # 3.4 10^3/ul (1.6-7.5); NEUTROPHILS % 54.4 % (39.0-77.0); PLATELET COUNT 535 10^3/UL (140-415); RED BLOOD COUNT 4.23 10^6/ul (4.20-5.40); RED CELL DISTRIBUTION WIDTH 13.8 % (11.5-14.5); WHITE BLOOD COUNT 6.2 10^3/ul (4.8-10.8)
[2017-06-16 05:36] LABS: MAGNESIUM 1.9 mg/dl (1.7-2.5); PHOSPHORUS 5.4 mg/dl (2.5-4.9)
[2017-06-16 05:39] LABS: ALBUMIN 3.8 g/dl (3.3-4.9); ALBUMIN/GLOBULIN RATIO 1.15; BILIRUBIN,INDIRECT 0.3 mg/dl (0-1.1); BILIRUBIN,TOTAL 0.3 mg/dl (0.2-1.3); CREATININE 0.68 mg/dl (0.44-1.00); POTASSIUM 3.7 mmol/L (3.5-5.1); TOTAL PROTEIN 7.1 g/dl (6.1-8.1)
[2017-06-16] MEDS: morphine 4 MG/ML VIAL IV PRN (07:15)
[2017-06-16 07:43] VITALS: BP 94/61; RESP 18
[2017-06-16] MEDS ORDERED: ACETAMINOPHEN 325 MG TAB PO PRN (11:00)
--- NOTE | 2017-06-16 14:32 | PDOCDIS ---
Discharge Instructions DIAGNOSIS Discharge Diagnosis Acute pancreatitis. CONDITION Patient Condition: Stable HOME CARE INSTRUCTIONS: Diet Instructions: RegularSpecial Diet: NPO ACTIVITY: Activity Restrictions: Slowly Increase Activity Rest between Activity Avoid heavy lifting Avoid Heavy Housework Bathing Restrictions: Shower OTHER ORDERS: Other Orders: 1. Regular diet as tolerated. 2. Resume activities as tolerated. 3. Follow-up with your RENEWABLE ENERGY CONSULTANT as scheduled. 4. Please go to the nearest ER if you have persistent abdominal pain, persistent nausea/vomiting, or any other unusual symptoms. BELKSI LAN NP Jun 16, 2017 14:32
--- NOTE | 2017-06-16 16:22 | DS ---
Date/Time of Note Date/Time of Note DATE: 06/16/17 TIME: 16:22 Discharge Summary Admission/Discharge Info Admit Date/Time Jun 15, 2017 at 05:38 Discharge Date/Time Discharge Diagnosis 1. Acute pancreatitis. 2. Dyslipidemia. Patient Condition: Stable Procedures CT Abdomen and Pelvis IMPRESSION: No definite acute abnormality of the abdomen or pelvis. Enlarged uterus. Postsurgical changes related to recent . Hx of Present Illness This is a 27-year-old female 2 weeks status post who presented to the ED with abdominal pain. The patient also had associated nonbilious, nonbloody emesis. The patient's lipase was found to be elevated. The abdominal CT was essentially negative. . Hospital Course The patient was admitted to inpatient Med/Surg floor. She was kept NPO. She was maintained on aggressive IV hydration. She was provided with adequate pain control. The patient's pancreatitis responded well to the treatment strategy. One the patient's pancreatic enzyme levels were trending down and the patient was started on a liquid diet, which was advanced to a solid diet without any significant gastrointestinal symptoms. The etiology of the patient's pancreatitis remains unclear. The patient had no evidence of any cholelithiasis. She denied any alcohol abuse. She had no evidence of any significant hypertriglyceridemia that can cause pancreatitis. The patient does not take any medications at home that can potentially cause pancreatitis. Hence it was concluded that the patient's acute pancreatitis was idiopathic in origin. The patient recently had a baby with . She was seen by a certified image consultant and she was allowed to have her breast milk pumped. The certified image consultant confirmed that the patient can safely use the milk for feeding the baby although the patient was on analgesics and antiemetics. The patient had a stable hospital course and she is stable to be discharged home. Discharge Instructions 1. Regular diet as tolerated. 2. Resume activities as tolerated. 3. Follow-up with your COLLECTION CLERK as scheduled. 4. Please go to the nearest ER if you have persistent abdominal pain, persistent nausea/vomiting, or any other unusual symptoms. The patient verbalized understanding of her discharge instructions. Case discussed with Dr. Vanegas. Home Meds Discontinued Reported Medications Ferrous Sulfate (Iron) 134 Mg Tablet, 134 MG PO, TAB 03/29/17 Vit No.124/Iron/FA ( Vitamin Tablet) 1 Each Tablet, 1 EACH PO DAILY, TAB 03/29/17 Follow-up Plan Discharge Instructions Primary Care Provider Care Physician No Primary Time spent on discharge: > 30 minutes Pending Labs Laboratory Tests Test 06/16/17 04:40 White Blood Count 6.210^3/ul (4.8-10.8) Red Blood Count 4.2310^6/ul (4.20-5.40) Hemoglobin 12.6g/dl (12.0-16.0) Hematocrit 38.1% (37.0-47.0) Mean Corpuscular Volume 90.1fl (82.0-101.0) Mean Corpuscular Hemoglobin 29.8pg (29.0-33.0) Mean Corpuscular Hemoglobin Concent 33.1g/dl (32.0-37.0) Red Cell Distribution Width 13.8% (11.5-14.5) Platelet Count 46702^3/UL (140-415) Mean Platelet Volume 9.4fl (7.4-10.4) Neutrophils % 54.4% (39.0-77.0) Lymphocytes % 33.6% (15.0-51.0) Monocytes % 8.0% (0.0-11.0) Eosinophils % 3.2% (0.0-7.0) Basophils % 0.3% (0.0-2.0) Nucleated Red Blood Cells % 0.0/100WBC (0.0-0.0) Neutrophils # 3.410^3/ul (1.6-7.5) Lymphocytes # 2.110^3/ul (0.8-2.9) Monocytes # 0.510^3/ul (0.3-0.9) Eosinophils # 0.210^3/ul (0.0-0.5) Basophils # 0.010^3/ul (0.0-0.1) Nucleated Red Blood Cells # 0.010^3/ul (0.0-0.0) Sodium Level 147mmol/L (135-144) Potassium Level 3.7mmol/L (3.5-5.1) Chloride Level 109mmol/L (97-110) Carbon Dioxide Level 26mmol/L (21-31) Anion Gap 16 (8-16) Blood Urea Nitrogen 11mg/dl (7-20) Creatinine 0.68mg/dl (0.44-1.00) Glucose Level 88mg/dl (70-220) Calcium Level 9.0mg/dl (8.4-10.2) Phosphorus Level 5.4mg/dl (2.5-4.9) Magnesium Level 1.9mg/dl (1.7-2.5) Total Bilirubin 0.3mg/dl (0.2-1.3) Direct Bilirubin 0.00mg/dl (0.00-0.20) Indirect Bilirubin 0.3mg/dl (0-1.1) Aspartate Amino Transf (AST/SGOT) 35IU/L (15-46) Alanine Aminotransferase (ALT/SGPT) 45IU/L (13-69) Alkaline Phosphatase 97IU/L (42-121) Total Protein 7.1g/dl (6.1-8.1) Albumin 3.8g/dl (3.3-4.9) Globulin 3.30g/dl (1.3-3.2) Albumin/Globulin Ratio 1.15 Amylase Level 57U/L (11-123) Lipase 54U/L (23-300) BELKIS LAN NP Jun 16, 2017 16:22
== END 2017-06-16 17:00 | disposition home or self-care (01) | DRG 440 ==
LOC: E/R 03:13 → MS1 05:38
PROVIDERS: ADMIT Internal Medicine; ATTEND Internal Medicine
DX: K85.90 Acute pancreatitis without necrosis or infection, unspecified (principal); E78.5 Hyperlipidemia, unspecified
CPT/HCPCS: 36415; 74176; 80053; 80061; 81001; 82150; 83690; 83735; 84100; 85025; 96374; 96375; J2270; J2405; J7030; J7040; J7042

== ENCOUNTER 2017-06-27 16:45 | Inpatient (IN) | payer MEDICAID ==
[~2017-06-27] VITALS: Ht 162.6 cm; Wt 67.9 kg
[2017-06-27] MEDS ORDERED: ONDANSETRON 4 MG INJ IV STA ×2 (17:04→21:01)
[2017-06-27] MEDS ORDERED: morphine 4 MG/ML VIAL IV STA (17:04)
[2017-06-27 17:39] LABS: BASOPHILS % 0.4 % (0.0-2.0); EOSINOPHILS # 0.2 10^3/ul (0.0-0.5); EOSINOPHILS % 3.6 % (0.0-7.0); HEMATOCRIT 36.9 % (37.0-47.0); HEMOGLOBIN 12.4 g/dl (12.0-16.0); MEAN CORPUSCULAR HGB CONC 33.6 g/dl (32.0-37.0); MEAN CORPUSCULAR VOLUME 89.1 fl (82.0-101.0); MEAN PLATELET VOLUME 10.4 fl (7.4-10.4); MONOCYTE # 0.5 10^3/ul (0.3-0.9); MONOCYTES % 9.5 % (0.0-11.0); NEUTROPHIL # 2.8 10^3/ul (1.6-7.5); NEUTROPHILS % 50.3 % (39.0-77.0); PLATELET COUNT 345 10^3/UL (140-415); RED BLOOD COUNT 4.14 10^6/ul (4.20-5.40); RED CELL DISTRIBUTION WIDTH 13.8 % (11.5-14.5); WHITE BLOOD COUNT 5.5 10^3/ul (4.8-10.8)
[2017-06-27 17:52] LABS: ADD UMIC YES; UR ASCORBIC ACID NEGATIVE (NEGATIVE); UR BILIRUBIN (Dip) NEGATIVE (NEGATIVE); UR BLOOD (Dip) 1+ mg/dL (NEGATIVE); UR CLARITY CLEAR (CLEAR); UR COLOR YELLOW (YELLOW); UR GLUCOSE (Dip) NEGATIVE (NEGATIVE); UR KETONES (Dip) NEGATIVE (NEGATIVE); UR LEUKOCYTE ESTERASE (Dip) 3+ Leu/ul (NEGATIVE); UR NITRITE (Dip) NEGATIVE (NEGATIVE); UR RBC 0 /HPF (0-5); UR SPECIFIC GRAVITY (Dip) 1.018 (1.003-1.030); UR SQUAMOUS EPITHELIAL CELL FEW /HPF (FEW); UR TOTAL PROTEIN (Dip) NEGATIVE (NEGATIVE); UR TRANSITIONAL EPI CELL FEW /HPF (NONE SEEN); UR UROBILINOGEN (Dip) NEGATIVE (NEGATIVE)
[2017-06-27] MEDS ORDERED: KETOROLAC 30 MG INJ IV STA (17:54)
[2017-06-27 17:59] LABS: ALBUMIN 4.2 g/dl (3.3-4.9); ALBUMIN/GLOBULIN RATIO 1.23; BILIRUBIN,INDIRECT 0.1 mg/dl (0-1.1); BILIRUBIN,TOTAL 0.1 mg/dl (0.2-1.3); CALCIUM 8.9 mg/dl (8.4-10.2); CREATININE 0.65 mg/dl (0.44-1.00); POTASSIUM 3.9 mmol/L (3.5-5.1); TOTAL PROTEIN 7.6 g/dl (6.1-8.1)
--- NOTE | 2017-06-27 18:10 | RADRPT ---
PROCEDURE: US Abdomen (right upper quadrant). CLINICAL INDICATION: Abdominal pain. TECHNIQUE: Multiple real-time longitudinal and transverse images of the right upper quadrant of th e abdomen were acquired utilizing a curved array transducer. Images were reviewed on a high-resoluti on PACS workstation. COMPARISON: CT abdomen and pelvis dated 06/15/2017 FINDINGS: The liver is normal in size and demonstrates normal echogenicity. No focal intrahepatic mass is id entified. The gallbladder contains multiple stones. There is mild gallbladder wall thickening. No intrahepatic biliary dilatation is seen. The common bile duct is dilated and measures 11 mm in maxi mal dimension. The portal and hepatic veins are patent demonstrating normal directional flow. The vi sualized portions of the pancreas are unremarkable with obscuration of the tail of the pancreas. No free fluid is identified. The right kidney measures 10.7 cm in length. There is normal echogenicity within the right kidney. There is no perinephric fluid collection. No hydronephrosis, mass, or calculus is seen. IMPRESSION: 1. Cholelithiasis with gallbladder wall thickening. Clinical correlation for acute cholecystitis is required. 2. Dilatation of the common bile duct measuring 11 mm in diameter. Consider MRCP for further evalua tion. RPTAT: HH .Nataly Schuster MD, MD Date Time Electronically viewed and signed by .Nataly Schuster MD, on 06/27/2017 18:10 .G/
[2017-06-27] MEDS ORDERED: CEFTRIAXONE 1 GM/50 ML (PMX) 50 ML IVPB ONE (18:30)
[2017-06-27] MEDS ORDERED: metroNIDAZOLE 500 MG/NS (PMX) 100 ML IVPB ONE (18:30)
[2017-06-27] MEDS ORDERED: LACTATED RINGER'S 1,000 ML IV ONE (18:30)
--- NOTE | 2017-06-27 18:44 | ERD ---
ER Documentation Chief Complaint Chief Complaint back pain that radiates to abd x 25 day [email or web address] for biliary colic HPI 27-year-old female comes for right upper quadrant pain that radiates to her right back. She has had the pain for 3 weeks. She had gone to the emergency room and Baljinder Regan performed been diagnosed with biliary colic. States that the pain is gotten worse recently. Is accompanied with nausea. She has had chills but no fevers. ROS All systems reviewed and are negative except as per history of present illness. Allergies Allergies: Coded Allergies: No Known Allergy (Unverified , 06/27/17) PMhx/Soc Medical and Surgical Hx: pt denies Medical Hx, pt denies Surgical Hx History of Surgery: Yes ( X 1) Anesthesia Reaction: No Hx Neurological Disorder: No Hx Respiratory Disorders: No Hx Cardiac Disorders: No Hx Psychiatric Problems: No Hx Miscellaneous Medical Probl: No Hx Alcohol Use: No Hx Substance Use: No Hx Tobacco Use: No Smoking Status: Never smoker Physical Exam Vitals Vital Signs Date Time Temp Pulse Resp B/P Pulse Ox O2 Delivery O2 Flow Rate FiO2 06/27/17 16:50 98.7 83 19 100/63 98 Physical Exam Const: [] Mild to moderate distress Head: Atraumatic Eyes: Normal Conjunctiva ENT: Normal External Ears, Nose and Mouth. Neck: Full range of motion..~ No meningismus. Resp: Clear to auscultation bilaterally Cardio: Regular rate and rhythm, no murmurs Abd: Soft, moderate right upper quadrant tenderness without guarding or rebound. Positive Ashford sign. non distended. Normal bowel sounds Skin: No petechiae or rashes Back: No midline or flank tenderness Ext: No cyanosis, or edema Neur: Awake and alert Psych: Normal Mood and Affect Result Diagram: 06/27/17 1720 06/27/17 1720 Results 24 hrs Laboratory Tests Test 06/27/17 17:15 06/27/17 17:20 Urine Color YELLOW Urine Clarity CLEAR Urine pH 5.0 Urine Specific [place] 1.018 Urine Ketones NEGATIVEmg/dL Urine Nitrite NEGATIVEmg/dL Urine Bilirubin NEGATIVEmg/dL Urine Urobilinogen NEGATIVEmg/dL Urine Leukocyte Esterase 3+Delores/ul Urine Microscopic RBC 0/HPF Urine Microscopic WBC 23/HPF Urine Squamous Epithelial Cells FEW/HPF Urine Transitional Epithelial Cells FEW/HPF Urine Hemoglobin 1+mg/dL Urine Glucose NEGATIVEmg/dL Urine Total Protein NEGATIVEmg/dl White Blood Count 5.510^3/ul Red Blood Count 4.1410^6/ul Hemoglobin 12.4g/dl Hematocrit 36.9% Mean Corpuscular Volume 89.1fl Mean Corpuscular Hemoglobin 30.0pg Mean Corpuscular Hemoglobin Concent 33.6g/dl Red Cell Distribution Width 13.8% Platelet Count 85552^3/UL Mean Platelet Volume 10.4fl Neutrophils % 50.3% Lymphocytes % 36.0% Monocytes % 9.5% Eosinophils % 3.6% Basophils % 0.4% Nucleated Red Blood Cells % 0.0/100WBC Neutrophils # 2.810^3/ul Lymphocytes # 2.010^3/ul Monocytes # 0.510^3/ul Eosinophils # 0.210^3/ul Basophils # 0.010^3/ul Nucleated Red Blood Cells # 0.010^3/ul Sodium Level 148mmol/L Potassium Level 3.9mmol/L Chloride Level 107mmol/L Carbon Dioxide Level 28mmol/L Anion Gap 17 Blood Urea Nitrogen 14mg/dl Creatinine 0.65mg/dl Glucose Level 109mg/dl Calcium Level 8.9mg/dl Total Bilirubin 0.1mg/dl Direct Bilirubin 0.00mg/dl Indirect Bilirubin 0.1mg/dl Aspartate Amino Transf (AST/SGOT) 62IU/L Alanine Aminotransferase (ALT/SGPT) 95IU/L Alkaline Phosphatase 116IU/L Total Protein 7.6g/dl Albumin 4.2g/dl Globulin 3.40g/dl Albumin/Globulin Ratio 1.23 Lipase 77U/L Current Medications Medications (Trade) Dose Ordered Sig/Juan Route PRN Reason Start Time Stop Time Status Last Admin Dose Admin Morphine Sulfate (morphine) 4 mg ONCE STAT IV 06/27/17 17:04 06/27/17 17:05 DC 06/27/17 17:29 Ondansetron HCl (Zofran Inj) 4 mg ONCE STAT IV 06/27/17 17:04 06/27/17 17:05 DC 06/27/17 17:29 Ketorolac Tromethamine 30 mg 30 mg ONCE STAT IV 06/27/17 17:54 06/27/17 17:55 DC 06/27/17 17:57 Lactated Ringer's 1,000 ml @ 1,000 mls/hr Q1H ONCE IV 06/27/17 18:30 06/27/17 19:29 DC 06/27/17 18:38 Ceftriaxone Sodium 50 ml @ 100 mls/hr ONCE ONCE IVPB 06/27/17 18:30 06/27/17 18:59 DC 06/27/17 18:58 Metronidazole (Flagyl 500 Mg (Pmx)) 100 ml @ 100 mls/hr ONCE ONCE IVPB 06/27/17 18:30 06/27/17 19:29 DC Morphine Sulfate (morphine) 8 mg ONCE ONCE IV 06/27/17 19:30 06/27/17 19:31 Procedures/MDM Acute cholecystitis with dilated duct and mild increased LFTs. Fortunately patient has no bilirubin elevation. She was hydrated with lactated Ringer's and given morphine, Zofran for pain she required subsequent doses of morphine.. This did decrease her pain. I spoke with Dr. Garcia for surgical consult. Dr. chavez is admitting to the medical surgical floor for further management. I also administered Rocephin and Flagyl. She also has urinary tract infection which will be covered by these antibiotics. Ultrasound right upper quadrant interpretation: Gallstones with concern for acute cholecystitis because of thickened bedoya dilated duct of 11 mm. Departure Diagnosis: Primary Impression: Acute cholecystitis Additional Impression: UTI (urinary tract infection) Condition: AURELIO Craven DO Jun 27, 2017 18:44
[2017-06-27] MEDS ORDERED: morphine 10 MG INJ IV ONE (19:30)
[2017-06-27] MEDS ORDERED: ACETAMINOPHEN 325 MG TAB PO PRN (20:30)
[2017-06-27] MEDS ORDERED: ONDANSETRON 4 MG INJ IV PRN (20:30)
[2017-06-27 21:19] VITALS: TEMP 98.1
[2017-06-27] MEDS ORDERED: METOCLOPRAMIDE 10 MG INJ IV ONE (21:30)
[2017-06-27 22:04] VITALS: BP 97/59; PULSE 64; RESP 18
[2017-06-27 22:17] VITALS: Ht 162.6 cm; Wt 67.9 kg
[2017-06-27] MEDS ORDERED: **FLU VACCINE PREVIOUSLY DISPENSED XX PRN (23:30)
[2017-06-28] VITALS (39 sets, daily range): BP systolic 85–117; BP diastolic 48–76; PULSE 64–87; RESP 11–19
[2017-06-28] MEDS ORDERED: morphine 4 MG/ML VIAL IV PRN (00:30)
[2017-06-28] MEDS ORDERED: HYDROmorphONE 1 MG/ML SYG IV PRN (00:30)
[2017-06-28] MEDS ORDERED: ONDANSETRON 4 MG INJ IV PRN ×3 (00:30→12:00)
[2017-06-28] MEDS: DEXTROSE 5%-0.45% NACL 1,000 ML IV SCH ×3 (00:37→20:30)
[2017-06-28 05:59] LABS: BASOPHILS % 0.4 % (0.0-2.0); EOSINOPHILS # 0.2 10^3/ul (0.0-0.5); EOSINOPHILS % 4.2 % (0.0-7.0); HEMATOCRIT 35.2 % (37.0-47.0); HEMOGLOBIN 11.5 g/dl (12.0-16.0); LYMPHOCYTES # 1.6 10^3/ul (0.8-2.9); LYMPHOCYTES % 28.2 % (15.0-51.0); MEAN CORPUSCULAR HEMOGLOBIN 29.5 pg (29.0-33.0); MEAN CORPUSCULAR HGB CONC 32.7 g/dl (32.0-37.0); MEAN CORPUSCULAR VOLUME 90.3 fl (82.0-101.0); MEAN PLATELET VOLUME 10.6 fl (7.4-10.4); MONOCYTE # 0.6 10^3/ul (0.3-0.9); MONOCYTES % 10.1 % (0.0-11.0); NEUTROPHIL # 3.2 10^3/ul (1.6-7.5); NEUTROPHILS % 56.7 % (39.0-77.0); PLATELET COUNT 315 10^3/UL (140-415); RED CELL DISTRIBUTION WIDTH 13.9 % (11.5-14.5); WHITE BLOOD COUNT 5.7 10^3/ul (4.8-10.8)
[2017-06-28 06:35] LABS: CALCIUM 8.2 mg/dl (8.4-10.2); CREATININE 0.62 mg/dl (0.44-1.00); PHOSPHORUS 4.3 mg/dl (2.5-4.9); POTASSIUM 3.7 mmol/L (3.5-5.1)
--- NOTE | 2017-06-28 09:00 | HP ---
Date/Time of Note Date/Time of Note DATE: 06/28/17 TIME: 08:56 Assessment/Plan VTE Prophylaxis VTE Prophylaxis Intervention: SCD's Lines/Catheters IV [facility] Peripheral IV Urinary Cath still in place: No Assessment/Plan Assessment/Plan 1. Acute cholecystitis with choledocholithiasis Keep n.p.o. with IV fluids IV antibiotics Pain management Awaiting surgical and GI evaluation 2. UTI IV antibiotic IV fluids Follow-up culture results HPI/ROS Admit Date/Time Admit Date/Time Jun 27, 2017 at 20:24 Hx of Present Illness 27-year-old female who is 1 month delivered via who presented to the ER complaining of abdominal pain. She says she has been having this abdominal pain for about a month. She was actually admitted here about 2 weeks ago for abdominal pain. At that time CT abdomen/pelvis was negative. At this time imaging showed acute cholecystitis with dilated CBD measuring 11 mm. Transaminases are elevated with AST and ALT being 62 and 95 respectively. Urinalysis is consistent with UTI. PMH/Family/Social Social History Smoking Status: Never smoker Exam/Review of Systems Vital Signs Vitals Vital Signs Date Time Temp Pulse Resp B/P Pulse Ox O2 Delivery O2 Flow Rate FiO2 06/28/17 07:32 98.0 72 18 97/55 96 06/27/17 22:04 Room Air Intake and Output 06/27/17 06/27/17 06/28/17 15:00 23:00 07:00 Intake Total 150 ml 900 ml Balance 150 ml 900 ml Exam Constitutional: alert, oriented, well developed Head: atraumatic, normocephalic Eyes: EOMI, PERRL Respiratory: clear to auscultation, normal air movement Cardiovascular: nl pulses, regular rate and rhythm Gastrointestinal: soft, tender Extremities: normal pulses Labs Result Diagram: 06/28/1743106/28/17 043 Medications Medications Current Medications Miscellaneous Information (Flu Vaccine Previously Dispensed) FLU VACCINE PREVIOU... NOTE PRN XX NOTE; Start 06/27/17 at 23:30 Ondansetron HCl (Zofran Inj) 4 mg Q6 PRN IV NAUSEA AND/OR VOMITING; Start at 00:30 Hydromorphone HCl (Dilaudid) 1 mg Q4H PRN IV PAIN; Start 06/28/17 at 00:30 Morphine Sulfate 3 mg 3 mg Q4H PRN IV PAIN; Start 06/28/17 at 00:30 Dextrose/Sodium Chloride (D5-1/2ns) 1,000 ml @ 100 mls/hr Q10H IV Last administered on 06/28/17 00:37; Admin Dose 100 MLS/HR; Start 06/28/17 at 00: 30 LAURITA BANGURA MD Jun 28, 2017 09:00
--- NOTE | 2017-06-28 09:57 | CONS ---
Date/Time of Note Date/Time of Note DATE: 06/28/17 TIME: 09:52 Assessment/Plan Assessment/Plan Additional Assessment/Plan Acute cholecystitis An MRCP has been tentatively ordered because of slight dilatation of her common bile duct, however her LFTs are normal. We will hold on the MRCP and proceed with laparoscopic cholecystectomy. I have discussed the procedure, outcomes, expectations, alternatives and risks. The patient understands and agrees to the proposed plan of therapy. Consultation Date/Type/Reason Admit Date/Time Jun 27, 2017 at 20:24 Date of Consultation: Jun 28, 2017 Reason for Consultation Acute cholecystitis Hx of Present Illness The patient is a 27-year-old Congolese-speaking 1 month . She presents with abdominal pain nausea and vomiting. An abdominal ultrasound shows gallstones with gallbladder wall thickening. She is admitted with diagnosis of acute cholecystitis and surgical consultation was requested in that regard. She has had no fevers or chills. Constitutional: no complaints Eyes: no complaints ENT: no complaints Respiratory: no complaints Cardiovascular: no complaints Gastrointestinal: no complaints, pain (Right upper quadrant) Genitourinary: no complaints Musculoskeletal: no complaints Skin: no complaints Neurologic: no complaints Endocrine: no complaints Lymphatic: no complaints Psychological: no complaints Immunologic: no complaints Past Medical History Medical History: no pertinent history Past Surgical History Past Surgical Hx: other ( section) Family History Significant Family History: no pertinent family hx Social History Alcohol Use: none Smoking Status: Never smoker Drug Use: none Exam/Review of Systems Vital Signs Vitals Vital Signs Date Time Temp Pulse Resp B/P Pulse Ox O2 Delivery O2 Flow Rate FiO2 06/28/17 07:32 98.0 72 18 97/55 96 06/27/17 22:04 Room Air Intake and Output 06/27/17 06/27/17 06/28/17 15:00 23:00 07:00 Intake Total 150 ml 900 ml Balance 150 ml 900 ml Exam Constitutional: alert, oriented Psych: no complaints Head: normocephalic Eyes: nl conjunctiva ENMT: nl external ears & nose Neck: supple Respiratory: clear to auscultation Cardiovascular: regular rate and rhythm Gastrointestinal: tender (Right upper quadrant) Musculoskeletal: nl extremities to inspection Extremities: normal pulses Neurological: CROZER II-XII intact Skin: nl turgor Lymph: nl lymph nodes Results Result Diagram: 06/28/17 0432 06/28/17 0432 Results 24 hrs Laboratory Tests Test 06/27/17 17:15 06/27/17 17:20 06/28/17 04:32 Urine Color YELLOW Urine Clarity CLEAR Urine pH 5.0 Urine Specific [place] 1.018 Urine Ketones NEGATIVE Urine Nitrite NEGATIVE Urine Bilirubin NEGATIVE Urine Urobilinogen NEGATIVE Urine Leukocyte Esterase 3+ H Urine Microscopic RBC 0 Urine Microscopic WBC 23 H Urine Squamous Epithelial Cells FEW Urine Transitional Epithelial Cells FEW A Urine Hemoglobin 1+ H Urine Glucose NEGATIVE Urine Total Protein NEGATIVE White Blood Count 5.5 5.7 Red Blood Count 4.14 L 3.90 L Hemoglobin 12.4 11.5 L Hematocrit 36.9 L 35.2 L Mean Corpuscular Volume 89.1 90.3 Mean Corpuscular Hemoglobin 30.0 29.5 Mean Corpuscular Hemoglobin Concent 33.6 32.7 Red Cell Distribution Width 13.8 13.9 Platelet Count 345 # 315 Mean Platelet Volume 10.4 10.6 H Neutrophils % 50.3 56.7 Lymphocytes % 36.0 28.2 Monocytes % 9.5 10.1 Eosinophils % 3.6 4.2 Basophils % 0.4 0.4 Nucleated Red Blood Cells % 0.0 0.0 Neutrophils # 2.8 3.2 Lymphocytes # 2.0 1.6 Monocytes # 0.5 0.6 Eosinophils # 0.2 0.2 Basophils # 0.0 0.0 Nucleated Red Blood Cells # 0.0 0.0 Sodium Level 148 H 145 H Potassium Level 3.9 3.7 Chloride Level 107 108 Carbon Dioxide Level 28 26 Anion Gap 17 H 15 Blood Urea Nitrogen 14 15 Creatinine 0.65 0.62 Glucose Level 109 93 Calcium Level 8.9 8.2 L Total Bilirubin 0.1 L Direct Bilirubin 0.00 Indirect Bilirubin 0.1 Aspartate Amino Transf (AST/SGOT) 62 H Alanine Aminotransferase (ALT/SGPT) 95 H Alkaline Phosphatase 116 Total Protein 7.6 Albumin 4.2 Globulin 3.40 H Albumin/Globulin Ratio 1.23 Lipase 77 Phosphorus Level 4.3 Magnesium Level 2.0 Medications Medications Current Medications Miscellaneous Information (Flu Vaccine Previously Dispensed) FLU VACCINE PREVIOU... NOTE PRN XX NOTE; Start 06/27/17 at 23:30 Ondansetron HCl (Zofran Inj) 4 mg Q6 PRN IV NAUSEA AND/OR VOMITING; Start at 00:30 Hydromorphone HCl (Dilaudid) 1 mg Q4H PRN IV PAIN; Start 06/28/17 at 00:30 Morphine Sulfate 3 mg 3 mg Q4H PRN IV PAIN; Start 06/28/17 at 00:30 Dextrose/Sodium Chloride (D5-1/2ns) 1,000 ml @ 100 mls/hr Q10H IV Last administered on 06/28/17t 00:37; Admin Dose 100 MLS/HR; Start 06/28/17 at 00: 30 MARS ZABALA MD Jun 28, 2017 09:57
[2017-06-28] MEDS ORDERED: BUPIVACAINE 0.5%/EPI (SDV) 30 ML INJ ONE (10:45)
[2017-06-28] MEDS ORDERED: ROPIVACAINE 0.2% 20 ML VIAL ONE (10:49)
[2017-06-28] MEDS ORDERED: CEFAZOLIN 1 GM INJ ONE (10:49)
[2017-06-28] MEDS ORDERED: PROPOFOL 20 ML ONE (10:49)
[2017-06-28] MEDS ORDERED: ROCURONIUM 50 MG INJ ONE (10:49)
[2017-06-28] MEDS ORDERED: MIDAZOLAM 1 MG/ML 2 ML INJ ONE (10:49)
[2017-06-28] MEDS ORDERED: FENTAnyl 50 MCG/ML VIAL ONE (10:49)
[2017-06-28] MEDS ORDERED: ONDANSETRON 4 MG INJ ONE (11:19)
[2017-06-28] MEDS ORDERED: ACETAMINOPHEN 1000MG/100ML IV 100 ML ONE (11:19)
[2017-06-28] MEDS ORDERED: KETOROLAC 30 MG INJ ONE (11:20)
[2017-06-28] MEDS ORDERED: SUGAMMADEX SODIUM 200 MG/2 ML VIAL IV ONE (11:20)
[2017-06-28] MEDS ORDERED: DEXAMETHASONE 4 MG/ML 1 ML INJ ONE (11:20)
[2017-06-28] MEDS ORDERED: METOCLOPRAMIDE 10 MG INJ ONE (11:20)
[2017-06-28] MEDS ORDERED: LABETALOL HCL 20MG INJ IV PRN (11:30)
[2017-06-28] MEDS ORDERED: FENTAnyl 50 MCG/ML VIAL IV PRN ×3 (11:30)
[2017-06-28] MEDS ORDERED: METOCLOPRAMIDE 10 MG INJ IV PRN (11:30)
[2017-06-28] MEDS ORDERED: EPHEDrine SULFATE 50 MG/5 ML SYG IV PRN (11:30)
[2017-06-28] MEDS ORDERED: MEPERIDINE 25 MG INJ IV PRN (11:30)
[2017-06-28] MEDS ORDERED: DIPHENHYDRAMINE 50 MG INJ IV PRN (11:30)
[2017-06-28] MEDS ORDERED: morphine (1 MG/ML) 10ML SYRINGE IV PRN ×3 (11:30)
[2017-06-28] MEDS ORDERED: MEPERIDINE 100 MG INJ ONE (11:44)
--- NOTE | 2017-06-28 11:46 | OPR ---
Date/Time of Note Date/Time of Note DATE: 06/28/17 TIME: 11:43 Operative Report Procedure Date: Jun 28, 2017 Preoperative Diagnosis Acute cholecystitis Postoperative Diagnosis Acute cholecystitis Operation/Procedure Performed Laparoscopic cholecystectomy Surgeon Zafar Zabala MD Ammunition Components Inspector None Anesthesia Type: general Anesthesiologist: RUPERT DAVE MD Estimated Blood Loss: 10 - 50 ml's Transfusion none Specimen Gallbladder Grafts/Implants none Tubes/Drains None Complications none Pt Condition Post Procedure: stable Disposition: PACU Indications Cholecystitis Procedure Description After satisfactory general endotracheal anesthesia was achieved, the abdomen was prepped and draped in the usual fashion. The abdomen was insufflated with carbon dioxide through an umbilical Veress needle to 15 mmHg pressure. The Veress needle was removed and the umbilical incision extended to 5 mm through which a 5 mm trocar was placed. A 5 mm 0 lens was placed. The gallbladder was noted to be inflamed and markedly distended. Under direct visualization an 11 mm epigastric trocar was placed as well as 2 5 mm right lateral abdominal trochars. The dome of the gallbladder was grasped and retracted superiorly, while the infundibulum was grasped and retracted infero-laterally. The hepatoduodenal ligament was carefully dissected. In this case the cystic artery was anterior coursing up the gallbladder this was triply hemoclipped and divided. The cystic duct was then dissected circumferentially then triply hemoclipped and divided high at the junction of the gallbladder and cystic duct the gallbladder was then dissected from below using electrocautery dissection and placed fully intact into an Endo Catch removed via the epigastric route. Hemostasis of liver bed was total and irrigant now returned clear. The abdomen was then desufflated and trochars were removed. The fascia of the epigastrium was closed with a single suture of 0 Vicryl. The skin punctures were infiltrated with 30 cc of 0.5% Marcaine with epinephrine and closed with aracelis. Sponge and needle counts reported as correct 2. ZAFAR ZABALA MD Jun 28, 2017 11:46
[2017-06-28] MEDS ORDERED: OXYCODONE/ACETAMINOPHEN (5/325) TAB PO PRN ×2 (12:00)
[2017-06-28] MEDS ORDERED: morphine 2 MG INJ IV PRN (12:00)
[2017-06-28] MEDS ORDERED: NALOXONE (0.4 MG/ML) INJ SC STA (18:30)
[2017-06-28] MEDS ORDERED: NALOXONE (0.4 MG/ML) INJ ONE (18:32)
[2017-06-28 19:06] LABS: BASOPHILS % 0.1 % (0.0-2.0); HEMATOCRIT 36.3 % (37.0-47.0); LYMPHOCYTES # 0.7 10^3/ul (0.8-2.9); LYMPHOCYTES % 10.1 % (15.0-51.0); MEAN CORPUSCULAR HEMOGLOBIN 30.2 pg (29.0-33.0); MEAN CORPUSCULAR HGB CONC 33.1 g/dl (32.0-37.0); MEAN CORPUSCULAR VOLUME 91.2 fl (82.0-101.0); MEAN PLATELET VOLUME 10.3 fl (7.4-10.4); MONOCYTE # 0.1 10^3/ul (0.3-0.9); MONOCYTES % 1.5 % (0.0-11.0); NEUTROPHIL # 6.4 10^3/ul (1.6-7.5); NEUTROPHILS % 88.2 % (39.0-77.0); PLATELET COUNT 320 10^3/UL (140-415); RED BLOOD COUNT 3.98 10^6/ul (4.20-5.40); RED CELL DISTRIBUTION WIDTH 13.9 % (11.5-14.5); WHITE BLOOD COUNT 7.2 10^3/ul (4.8-10.8)
[2017-06-28 19:29] LABS: ANION GAP 19 (8-16); BLOOD UREA NITROGEN 9 mg/dl (7-20); CALCIUM 8.7 mg/dl (8.4-10.2); CARBON DIOXIDE 23 mmol/L (21-31); CHLORIDE 105 mmol/L (97-110); GLUCOSE 162 mg/dl (70-220); POTASSIUM 3.6 mmol/L (3.5-5.1); SODIUM 143 mmol/L (135-144)
[2017-06-28 19:33] LABS: ADD UMIC YES; UR ASCORBIC ACID NEGATIVE (NEGATIVE); UR BACTERIA FEW /HPF (NONE SEEN); UR BILIRUBIN (Dip) NEGATIVE (NEGATIVE); UR BLOOD (Dip) 2+ mg/dL (NEGATIVE); UR CLARITY CLEAR (CLEAR); UR COLOR YELLOW (YELLOW); UR GLUCOSE (Dip) NEGATIVE (NEGATIVE); UR KETONES (Dip) NEGATIVE (NEGATIVE); UR LEUKOCYTE ESTERASE (Dip) NEGATIVE Leu/ul (NEGATIVE); UR MUCUS FEW /HPF (NONE SEEN); UR NITRITE (Dip) NEGATIVE (NEGATIVE); UR RBC 4 /HPF (0-5); UR SPECIFIC GRAVITY (Dip) 1.017 (1.003-1.030); UR TOTAL PROTEIN (Dip) NEGATIVE (NEGATIVE); UR UROBILINOGEN (Dip) NEGATIVE (NEGATIVE)
[2017-06-28 19:42] LABS: TROPONIN-I < 0.012 ng/ml (0.00-0.12)
[2017-06-28] MEDS ORDERED: SOD CHLORIDE 0.9% 250 ML IV ONE (20:00)
[2017-06-29 00:04] VITALS: BP 103/65; RESP 16
[2017-06-29 05:02] LABS: BASOPHILS % 0.3 % (0.0-2.0); EOSINOPHILS # 0.1 10^3/ul (0.0-0.5); EOSINOPHILS % 1.6 % (0.0-7.0); HEMATOCRIT 33.2 % (37.0-47.0); HEMOGLOBIN 10.9 g/dl (12.0-16.0); LYMPHOCYTES # 1.8 10^3/ul (0.8-2.9); LYMPHOCYTES % 23.3 % (15.0-51.0); MEAN CORPUSCULAR HEMOGLOBIN 29.5 pg (29.0-33.0); MEAN CORPUSCULAR HGB CONC 32.8 g/dl (32.0-37.0); MEAN CORPUSCULAR VOLUME 89.7 fl (82.0-101.0); MEAN PLATELET VOLUME 10.3 fl (7.4-10.4); MONOCYTE # 0.7 10^3/ul (0.3-0.9); MONOCYTES % 8.9 % (0.0-11.0); NEUTROPHIL # 5.1 10^3/ul (1.6-7.5); NEUTROPHILS % 65.6 % (39.0-77.0); PLATELET COUNT 299 10^3/UL (140-415); RED CELL DISTRIBUTION WIDTH 13.8 % (11.5-14.5); WHITE BLOOD COUNT 7.7 10^3/ul (4.8-10.8)
[2017-06-29 05:17] LABS: ALBUMIN 3.2 g/dl (3.3-4.9); ALBUMIN/GLOBULIN RATIO 1.18; BILIRUBIN,INDIRECT 0.1 mg/dl (0-1.1); BILIRUBIN,TOTAL 0.1 mg/dl (0.2-1.3); CALCIUM 8.4 mg/dl (8.4-10.2); CREATININE 0.59 mg/dl (0.44-1.00); POTASSIUM 3.6 mmol/L (3.5-5.1); TOTAL PROTEIN 5.9 g/dl (6.1-8.1)
[2017-06-29] MEDS: DEXTROSE 5%-0.45% NACL 1,000 ML IV SCH ×2 (06:07→15:52)
[2017-06-29 07:33] VITALS: BP 96/59; RESP 20
--- NOTE | 2017-06-29 11:26 | PN ---
Date/Time of Note Date/Time of Note DATE: 06/29/17 TIME: 11:25 Assessment/Plan Lines/Catheters IV Catheter Type (from [facility]): Peripheral IV Pedro in Place (from [facility]): Yes Assessment/Plan Chief Complaint/Hosp Course The patient is a 27-year-old French-speaking 1 month . She presents with abdominal pain nausea and vomiting. An abdominal ultrasound shows gallstones with gallbladder wall thickening. She is admitted with diagnosis of acute cholecystitis and surgical consultation was requested in that regard. She has had no fevers or chills. Problems: Assessment/Plan Although the abdominal examination is benign, and the LFTs are normal, the patient is experiencing moderate amount of abdominal pain. She is lethargic, and was lethargic preoperatively as well Continue medical management and mobilization Subjective 24 Hr Interval Summary Postoperative day #1 Exam/Review of Systems Vital Signs Vitals Vital Signs Date Time Temp Pulse Resp B/P Pulse Ox O2 Delivery O2 Flow Rate FiO2 06/29/17 08:00 Nasal Cannula 2.0 06/29/17 07:33 98.7 54 20 96/59 96 Intake and Output 06/28/17 06/28/17 06/29/17 14:59 22:59 06:59 Intake Total 1650 ml 615 ml 1385 ml Output Total 30 ml 2000 ml Balance 1620 ml 615 ml -615 ml Results Result Diagram: 06/29/17 0443 06/29/17 0443 MARS ZABALA MD Jun 29, 2017 11:26
[2017-06-29] MEDS: IBUPROFEN 600 MG TAB PO PRN ×2 (12:08→18:07)
--- NOTE | 2017-06-29 16:36 | PN ---
Date/Time of Note Date/Time of Note DATE: 06/29/17 TIME: 16:35 Assessment/Plan VTE Prophylaxis VTE Prophylaxis Intervention: heparin Lines/Catheters IV Catheter Type (from [facility]): Peripheral IV Urinary Cath still in place: Yes Reason Cath still needed: other (indicate) Assessment/Plan Chief Complaint/Hosp Course 27 yo female with cholecystitis now s/p lap jessica - Continue pain meds PRN - Ambulation as tolerated - PO as tolerated Discharge likely tomorrow Problems: Subjective 24 Hr Interval Summary Free Text/Dictation Having pain at incision site Tolerating PO Passed gas Exam/Review of Systems Vital Signs Vitals Vital Signs Date Time Temp Pulse Resp B/P Pulse Ox O2 Delivery O2 Flow Rate FiO2 06/29/17 12:45 2.0 06/29/17 08:00 Nasal Cannula 06/29/17 07:33 98.7 54 20 96/59 96 Intake and Output 06/28/17 06/28/17 06/29/17 15:00 23:00 07:00 Intake Total 1650 ml 1440 ml 560 ml Output Total 30 ml 2000 ml Balance 1620 ml 1440 ml -1440 ml Exam Constitutional: alert, oriented, well developed Psych: nl mood/affect, no complaints Head: atraumatic, normocephalic Eyes: EOMI, PERRL, nl conjunctiva, nl lids, nl sclera ENMT: nl external ears & nose, nl lips & teeth, nl nasal mucosa & septum Neck: non-tender, supple Respiratory: clear to auscultation, normal air movement Cardiovascular: nl pulses, regular rate and rhythm Gastrointestinal: nl liver, spleen, non-tender, soft Musculoskeletal: nl extremities to inspection, nl gait and stance Extremities: normal pulses Neurological: FURNITURE DECALS INSPECTOR II-XII intact, nl mental status, nl speech, nl strength Skin: nl turgor, No rash or lesions Lymph: nl lymph nodes Results Result Diagram: 06/29/17 0443 06/29/173 Results 24 hrs Laboratory Tests Test 06/28/17 18:30 06/28/17 18:50 06/28/17 19:05 06/28/17 22:09 Bedside Glucose 118 White Blood Count 7.2 # Red Blood Count 3.98 L Hemoglobin 12.0 Hematocrit 36.3 L Mean Corpuscular Volume 91.2 Mean Corpuscular Hemoglobin 30.2 Mean Corpuscular Hemoglobin Concent 33.1 Red Cell Distribution Width 13.9 Platelet Count 320 Mean Platelet Volume 10.3 Neutrophils % 88.2 H Lymphocytes % 10.1 L Monocytes % 1.5 Eosinophils % 0.0 Basophils % 0.1 Nucleated Red Blood Cells % 0.0 Neutrophils # 6.4 Lymphocytes # 0.7 L Monocytes # 0.1 L Eosinophils # 0.0 Basophils # 0.0 Nucleated Red Blood Cells # 0.0 Sodium Level 143 Potassium Level 3.6 Chloride Level 105 Carbon Dioxide Level 23 Anion Gap 19 H Blood Urea Nitrogen 9 Creatinine 0.60 Glucose Level 162 Lactic Acid Level 4.2 *H 3.7 *H Calcium Level 8.7 Troponin I < 0.012 Urine Color YELLOW Urine Clarity CLEAR Urine pH 7.0 Urine Specific [place] 1.017 Urine Ketones NEGATIVE Urine Nitrite NEGATIVE Urine Bilirubin NEGATIVE Urine Urobilinogen NEGATIVE Urine Leukocyte Esterase NEGATIVE Urine Microscopic RBC 4 Urine Microscopic WBC 7 H Urine Bacteria FEW A Urine Mucus FEW A Urine Hemoglobin 2+ H Urine Glucose NEGATIVE Urine Total Protein NEGATIVE Test 06/29/17 01:05 06/29/17 04:43 Troponin I < 0.012 White Blood Count 7.7 Red Blood Count 3.70 L Hemoglobin 10.9 L Hematocrit 33.2 L Mean Corpuscular Volume 89.7 Mean Corpuscular Hemoglobin 29.5 Mean Corpuscular Hemoglobin Concent 32.8 Red Cell Distribution Width 13.8 Platelet Count 299 Mean Platelet Volume 10.3 Neutrophils % 65.6 Lymphocytes % 23.3 Monocytes % 8.9 Eosinophils % 1.6 Basophils % 0.3 Nucleated Red Blood Cells % 0.0 Neutrophils # 5.1 Lymphocytes # 1.8 Monocytes # 0.7 Eosinophils # 0.1 Basophils # 0.0 Nucleated Red Blood Cells # 0.0 Sodium Level 141 Potassium Level 3.6 Chloride Level 106 Carbon Dioxide Level 25 Anion Gap 14 Blood Urea Nitrogen 6 L Creatinine 0.59 Glucose Level 101 # Lactic Acid Level 1.1 Calcium Level 8.4 Total Bilirubin 0.1 L Direct Bilirubin 0.00 Indirect Bilirubin 0.1 Aspartate Amino Transf (AST/SGOT) 77 H Alanine Aminotransferase (ALT/SGPT) 103 H Alkaline Phosphatase 158 H Total Protein 5.9 #L Albumin 3.2 #L Globulin 2.70 Albumin/Globulin Ratio 1.18 Medications Medications Current Medications Miscellaneous Information (Flu Vaccine Previously Dispensed) FLU VACCINE PREVIOU... NOTE PRN XX NOTE; Start 06/27/17 at 23:30 Hydromorphone HCl (Dilaudid) 1 mg Q4H PRN IV PAIN Last administered on 16:46; Admin Dose 1 MG; Start 06/28/17 at 00:30 Morphine Sulfate 3 mg 3 mg Q4H PRN IV PAIN; Start 06/28/17 at 00:30 Dextrose/Sodium Chloride (D5-1/2ns) 1,000 ml @ 100 mls/hr Q10H IV Last administered on 06/29/17 15:52; Admin Dose 100 MLS/HR; Start 06/28/17 at 00: 30 Oxycodone/ Acetaminophen (Percocet (5/ 325)) 1 tab Q4H PRN PO MILD PAIN (1-3) Last administered on 06/28/17 21:45; Admin Dose 1 TAB; Start 06/28/17 at 12: 00 Oxycodone/ Acetaminophen (Percocet (5/ 325)) 2 tab Q4H PRN PO MODERATE PAIN (4- 6); Start 06/28/17 at 12:00 Ondansetron HCl (Zofran Inj) 4 mg Q6H PRN IV NAUSEA; Start 06/28/17 at 12:00 Ibuprofen (Motrin) 600 mg Q6H PRN PO PAIN Last administered on 06/29/17 12:08 ; Admin Dose 600 MG; Start 06/29/17 at 11:30 MARGARITA FITZGERALD MD Jun 29, 2017 16:36
[2017-06-29 20:15] VITALS: BP 100/62; RESP 20
[2017-06-30] MEDS: DOCUSATE SODIUM 100 MG CAP PO SCH ×2 (01:26→08:21)
[2017-06-30] MEDS: IBUPROFEN 600 MG TAB PO PRN ×2 (02:08→11:50)
[2017-06-30 02:30] VITALS: BP 108/64; RESP 20
[2017-06-30 08:18] VITALS: BP 102/63; RESP 18
[2017-06-30] MEDS ORDERED: POLYETHYLENE GLYCOL 17 GM PACKET PO SCH (09:00)
--- NOTE | 2017-06-30 11:22 | PDOCDIS ---
Discharge Instructions DIAGNOSIS Discharge Diagnosis Cholecystitis CONDITION Patient Condition: Good HOME CARE INSTRUCTIONS: Diet Instructions: RegularSpecial Diet: REGULAR ACTIVITY: Activity Restrictions: Slowly Increase Activity Rest between Activity Avoid heavy lifting Avoid Heavy Housework Bathing Restrictions: Shower FOLLOW UP/APPOINTMENTS Follow-up Plan Make an appointment to see your surgeon Dr Garcia in clinic within the next 1-2 weeks MARGARITA FITZGERALD MD Jun 30, 2017 11:22
[2017-06-30 14:00] VITALS: BP 100/65; RESP 17
--- NOTE | 2017-06-30 15:24 | DS ---
Date/Time of Note Date/Time of Note DATE: 06/30/17 TIME: 15:24 Discharge Summary Admission/Discharge Info Admit Date/Time Jun 27, 2017 at 20:24 Discharge Date/Time Discharge Diagnosis Cholecystitis Patient Condition: Good Hospital Course 27 yo female with cholecystitis now s/p lap jessica - Continue pain meds PRN - Ambulation as tolerated - PO as tolerated Patient diagnosed with cholecystitis. Received abx. Underwent laparoscopic cholecystectomy. Post op course was uneventful. She was discharged to home with follow up with Dr Garcia in clinic Home Meds No Active Prescriptions or Reported Meds Follow-up Plan Make an appointment to see your surgeon Dr Garcia in clinic within the next 1-2 weeks Primary Care Provider Care Physician No Primary MARGARITA FITZGERALD MD Jun 30, 2017 15:24
== END 2017-06-30 16:00 | disposition home or self-care (01) | DRG 769 ==
LOC: E/R 16:45 → MS1 20:24
PROVIDERS: ADMIT Internal Medicine; ATTEND Internal Medicine
PROC: 0FT44ZZ Resection of Gallbladder, Percutaneous Endoscopic Approach (ICD-10-PCS; principal; 2017-06-28 11:00)
DX: O99.63 Diseases of the digestive system complicating the puerperium (principal); K80.00 Calculus of gallbladder with acute cholecystitis without obstruction; O86.20 Urinary tract infection following delivery, unspecified
CPT/HCPCS: 36415; 76705; 80048; 80053; 81001; 82962; 83605; 83690; 83735; 84100; 84484; 84703; 85025; 87040; 87086; 88304; 96361; 96365; 96367; 96375; 96376; J0131; J0690; J0696; J1100; J1170; J1885; J2175; J2250; J2270; J2310; J2405; J2765; J2795; J3010; J7040; J7042; J7120

== ENCOUNTER 2017-07-17 18:09 | Emergency (ER) | payer MEDICAID ==
[~2017-07-17] VITALS: Ht 157.5 cm; Wt 62.4 kg
[2017-07-17 18:14] VITALS: Ht 157.5 cm; Wt 62.4 kg
[2017-07-17] MEDS ORDERED: ONDANSETRON 4 MG INJ IV STA (22:56)
[2017-07-17] MEDS ORDERED: SODIUM CHLORIDE 0.9% 1L BAG IV* STA (22:56)
[2017-07-17] MEDS ORDERED: ACETAMINOPHEN 325 MG TAB PO ONE (23:00)
[2017-07-18 00:08] LABS: BASOPHILS % 0.2 % (0.0-2.0); EOSINOPHILS # 0.3 10^3/ul (0.0-0.5); EOSINOPHILS % 5.4 % (0.0-7.0); HEMATOCRIT 41.8 % (37.0-47.0); LYMPHOCYTES # 2.2 10^3/ul (0.8-2.9); LYMPHOCYTES % 37.2 % (15.0-51.0); MEAN CORPUSCULAR HEMOGLOBIN 29.5 pg (29.0-33.0); MEAN CORPUSCULAR HGB CONC 33.5 g/dl (32.0-37.0); MEAN CORPUSCULAR VOLUME 88.2 fl (82.0-101.0); MEAN PLATELET VOLUME 10.1 fl (7.4-10.4); MONOCYTE # 0.5 10^3/ul (0.3-0.9); MONOCYTES % 7.8 % (0.0-11.0); NEUTROPHIL # 2.9 10^3/ul (1.6-7.5); NEUTROPHILS % 49.4 % (39.0-77.0); PLATELET COUNT 407 10^3/UL (140-415); RED BLOOD COUNT 4.74 10^6/ul (4.20-5.40); RED CELL DISTRIBUTION WIDTH 13.7 % (11.5-14.5); WHITE BLOOD COUNT 5.9 10^3/ul (4.8-10.8)
[2017-07-18 00:19] LABS: ADD UMIC YES; UR ASCORBIC ACID NEGATIVE (NEGATIVE); UR BACTERIA FEW /HPF (NONE SEEN); UR BILIRUBIN (Dip) NEGATIVE (NEGATIVE); UR BLOOD (Dip) NEGATIVE (NEGATIVE); UR CLARITY CLOUDY (CLEAR); UR COLOR YELLOW (YELLOW); UR GLUCOSE (Dip) NEGATIVE (NEGATIVE); UR KETONES (Dip) NEGATIVE (NEGATIVE); UR LEUKOCYTE ESTERASE (Dip) 3+ Leu/ul (NEGATIVE); UR NITRITE (Dip) NEGATIVE (NEGATIVE); UR RBC 6 /HPF (0-5); UR SPECIFIC GRAVITY (Dip) 1.013 (1.003-1.030); UR SQUAMOUS EPITHELIAL CELL MODERATE /HPF (FEW); UR TOTAL PROTEIN (Dip) NEGATIVE (NEGATIVE); UR UROBILINOGEN (Dip) NEGATIVE (NEGATIVE)
[2017-07-18 00:24] LABS: ALBUMIN 4.8 g/dl (3.3-4.9); ALBUMIN/GLOBULIN RATIO 1.2; BILIRUBIN,INDIRECT 0.3 mg/dl (0-1.1); BILIRUBIN,TOTAL 0.3 mg/dl (0.2-1.3); CALCIUM 9.8 mg/dl (8.4-10.2); CREATININE 0.74 mg/dl (0.44-1.00); POTASSIUM 3.8 mmol/L (3.5-5.1); TOTAL PROTEIN 8.8 g/dl (6.1-8.1)
[2017-07-18 00:28] LABS: INR 0.95; PROTIME 12.8 Sec (11.9-14.9)
[2017-07-18 00:29] LABS: PARTIAL THROMBOPLASTIN TIME 34.5 Sec (25.0-35.0)
--- NOTE | 2017-07-18 02:09 | RADRPT ---
PROCEDURE: CT Abdomen and Pelvis without contrast. CLINICAL INDICATION: Sepsis TECHNIQUE: CT scan of the abdomen and pelvis was performed on a multidetector slice CT scanner. No intravenous contrast material was utilized. Sagittal and coronal reformatted images were obtained fr om the axial source images. Images were reviewed on a high-resolution PACS workstation. Exam CTDlvol = 8.3 mGy and DLP = 473 Gy-cm. One of the following 3 dose reduction techniques were used: Automate d exposure control; adjustment of the mA and/or kV according to patient size; or use of iterative re construction technique. DICOM images are available. COMPARISON: Right upper quadrant ultrasound 06/27/2017, CT abdomen pelvis 13 20:17. FINDINGS: There is no obstruction or ileus. There is moderate stool throughout the colon. The appendix is wel l visualized and normal in size. There is no evidence for diverticulitis. There is minimal lower ab dominal and pelvic free fluid. The liver is overall normal in size. No intrahepatic lesions are identified. The gallbladder has bee n removed. There is no abnormal fluid collection within the gallbladder fossa. There is no definite biliary ductal dilation. Pancreas is normal in appearance. The spleen is unremarkable. There are no adrenal masses. The aorta is normal caliber. Kidneys are normal in appearance without hydronephrosis, mass or calculus. There is no perinephric c ollection. Ureters are of normal caliber and without evidence for an obstructing calculus The urinar y bladder is partially contracted with nonspecific wall thickening.. The uterus is grossly unremarkable. The ovaries are not well visualized.. Limited evaluation of the lung bases is unremarkable. The bones are unremarkable. IMPRESSION: 1. Status post interval cholecystectomy. No abnormal fluid collection with the gallbladder fossa. No evidence for biliary obstruction. 2. Minimal free fluid. 3. No obstructive uropathy. Partially contracted urinary bladder with nonspecific wall thickening. 4. No evidence for appendicitis or diverticulitis. RPTAT: HMVK .Jonh Ortiz MD, Date Time Electronically viewed and signed by .Jonh Ortiz MD, on 07/18/2017 02:08 .K/
--- NOTE | 2017-07-18 02:30 | ERD ---
ER Documentation Chief Complaint Chief Complaint Complains of a wound check HPI 27-year-old female presents status post cholecystectomy 20 days ago with diffuse abdominal pain and nausea 3 days. Patient states she experienced 2 episodes of vomiting and intermittent chills. She rates her pain as an intermittent sharp 6 out of 10 which is worse with movement. She denies fever, diarrhea, cough, swelling of extremity, or chest pain. Patient states her last bowel movement was 3 days ago. Patient states she is due to have her aracelis removed. She is currently breast-feeding a 1-month-old. ROS All systems reviewed and are negative except as per history of present illness. Medications Home Meds No Active Prescriptions or Reported Meds Allergies Allergies: Coded Allergies: No Known Allergy (Unverified , 06/27/17) PMhx/Soc History of Surgery: Yes Anesthesia Reaction: No (06/02/2017) Hx Neurological Disorder: No Hx Respiratory Disorders: No Hx Cardiac Disorders: Yes Hx Psychiatric Problems: No Hx Miscellaneous Medical Probl: No Hx Alcohol Use: No Hx Substance Use: No Hx Tobacco Use: No Smoking Status: Never smoker Physical Exam Vitals Vital Signs Date Time Temp Pulse Resp B/P Pulse Ox O2 Delivery O2 Flow Rate FiO2 07/17/17 18:14 98.3 107 20 90/60 99 Physical Exam Const: Well-developed, well-nourished, no acute distress Head: Atraumatic Eyes: Normal Conjunctiva ENT: Normal External Ears, Nose and Mouth. Neck: Full range of motion..~ No meningismus. Resp: Clear to auscultation bilaterally Cardio: Regular rate and rhythm, no murmurs Abd: Soft, no tenderness near upper incision site, non distended. Normal bowel sounds. There is a 3 cm well-healed midline incision near the upper abdomen as well as to 2 cm well-healed incisions at the bilateral lower abdomen as well as one 2 cm well-healed incision site at the right mid abdomen. There is no surrounding erythema, swelling or active drainage. 12 aracelis were removed without complication. Skin: No petechiae or rashes Back: No midline or flank tenderness Ext: No cyanosis, or edema Neur: Awake and alert Psych: Normal Mood and Affect Result Diagram: 07/17/17 2330 07/17/17 2330 Results 24 hrs Laboratory Tests Test 07/17/17 22:56 07/17/17 23:30 07/17/17 23:40 Urine Color YELLOW Urine Clarity CLOUDY Urine pH 6.0 Urine Specific [place] 1.013 Urine Ketones NEGATIVEmg/dL Urine Nitrite NEGATIVEmg/dL Urine Bilirubin NEGATIVEmg/dL Urine Urobilinogen NEGATIVEmg/dL Urine Leukocyte Esterase 3+Delores/ul Urine Microscopic RBC 6/HPF Urine Microscopic WBC 63/HPF Urine Squamous Epithelial Cells MODERATE/HPF Urine Bacteria FEW/HPF Urine Hemoglobin NEGATIVEmg/dL Urine Glucose NEGATIVEmg/dL Urine Total Protein NEGATIVEmg/dl White Blood Count 5.910^3/ul Red Blood Count 4.7410^6/ul Hemoglobin 14.0g/dl Hematocrit 41.8% Mean Corpuscular Volume 88.2fl Mean Corpuscular Hemoglobin 29.5pg Mean Corpuscular Hemoglobin Concent 33.5g/dl Red Cell Distribution Width 13.7% Platelet Count 71517^3/UL Mean Platelet Volume 10.1fl Neutrophils % 49.4% Lymphocytes % 37.2% Monocytes % 7.8% Eosinophils % 5.4% Basophils % 0.2% Nucleated Red Blood Cells % 0.0/100WBC Neutrophils # 2.910^3/ul Lymphocytes # 2.210^3/ul Monocytes # 0.510^3/ul Eosinophils # 0.310^3/ul Basophils # 0.010^3/ul Nucleated Red Blood Cells # 0.010^3/ul Prothrombin Time 12.8Sec Prothrombin Time Ratio 1.0 INR International Normalized Ratio 0.95 Activated Partial Thromboplast Time 34.5Sec Sodium Level 145mmol/L Potassium Level 3.8mmol/L Chloride Level 105mmol/L Carbon Dioxide Level 27mmol/L Anion Gap 17 Blood Urea Nitrogen 13mg/dl Creatinine 0.74mg/dl Glucose Level 95mg/dl Calcium Level 9.8mg/dl Total Bilirubin 0.3mg/dl Direct Bilirubin 0.00mg/dl Indirect Bilirubin 0.3mg/dl Aspartate Amino Transf (AST/SGOT) 57IU/L Alanine Aminotransferase (ALT/SGPT) 81IU/L Alkaline Phosphatase 108IU/L Total Protein 8.8g/dl Albumin 4.8g/dl Globulin 4.00g/dl Albumin/Globulin Ratio 1.20 Lipase 71U/L Lactic Acid Level 1.0mmol/L Current Medications Medications (Trade) Dose Ordered Sig/Juan Route PRN Reason Start Time Stop Time Status Last Admin Dose Admin Sodium Chloride (NS) 1,930 ml BOLUS OVER 2 HOURS STAT IV* 07/17/17 22:56 07/17/17 23:01 DC 07/17/17 23:30 Acetaminophen (Tylenol Tab) 650 mg ONCE ONCE PO 07/17/17 23:00 07/17/17 23:01 DC 07/17/17 23:31 Ondansetron HCl (Zofran Inj) 4 mg ONCE STAT IV 07/17/17 22:56 07/17/17 23:01 DC 07/17/17 23:30 Procedures/MDM PROCEDURE: CT Abdomen and Pelvis without contrast. CLINICAL INDICATION: Sepsis TECHNIQUE: CT scan of the abdomen and pelvis was performed on a multidetector slice CT scanner. No intravenous contrast material was utilized. Sagittal and coronal reformatted images were obtained from the axial source images. Images were reviewed on a high-resolution PACS workstation. Exam CTDlvol = 8.3 mGy and DLP = 473 Gy-cm. One of the following 3 dose reduction techniques were used: Automated exposure control; adjustment of the mA and/or kV according to patient size; or use of iterative reconstruction technique. DICOM images are available. COMPARISON: Right upper quadrant ultrasound 06/27/2017, CT abdomen pelvis 13 20 :17. FINDINGS: There is no obstruction or ileus. There is moderate stool throughout the colon. The appendix is well visualized and normal in size. There is no evidence for diverticulitis. There is minimal lower abdominal and pelvic free fluid. The liver is overall normal in size. No intrahepatic lesions are identified. The gallbladder has been removed. There is no abnormal fluid collection within the gallbladder fossa. There is no definite biliary ductal dilation. Pancreas is normal in appearance. The spleen is unremarkable. There are no adrenal masses. The aorta is normal caliber. Kidneys are normal in appearance without hydronephrosis, mass or calculus. There is no perinephric collection. Ureters are of normal caliber and without evidence for an obstructing calculus The urinary bladder is partially contracted with nonspecific wall thickening.. The uterus is grossly unremarkable. The ovaries are not well visualized.. Limited evaluation of the lung bases is unremarkable. The bones are unremarkable. IMPRESSION: 1. Status post interval cholecystectomy. No abnormal fluid collection with the gallbladder fossa. No evidence for biliary obstruction. 2. Minimal free fluid. 3. No obstructive uropathy. Partially contracted urinary bladder with nonspecific wall thickening. 4. No evidence for appendicitis or diverticulitis. RPTAT: HMVK .Jonh Ortiz MD, MD Date Time Electronically viewed and signed by .Jonh Ortiz MD, MD on 07/18/2017 02:08 .K/ This is a well-appearing, nontoxic and pleasant 27-year-old female who presents to the emergency department for increased diffuse abdominal pain with nausea and 2 episodes of vomiting over the past 3 days. Patient is status post cholecystectomy 28 days ago. Physical exam with mild tenderness near the upper incision site. Otherwise within normal limits. Vital signs reviewed. Patient afebrile but mildly tachycardic and hypotensive and therefore a sepsis workup was started. Patient's lactic acid level within normal limits. She received fluids pain and nausea medication which controlled her symptoms while in the emergency department. CT imaging of the abdomen demonstrated significant amount of stool within her colon. There is no abnormal fluid collection near the gallbladder or evidence of obstruction. No evidence of appendicitis or diverticulitis. Lab is with evidence of mild dehydration, late due to her history of vomiting. Patient received a bolus of fluids while in the emergency department. Laboratory results otherwise unremarkable. At this time low suspicion for choledocholithiasis, pancreatitis, appendicitis, diverticulitis, bowel obstruction, ileus, pyelonephritis, urinary tract infection, ectopic , or other acute abdomen. I removed 12 aracelis without complication. Incision sites are well-healed without any sign of infection. Symptoms likely due to constipation. Vision a follow-up with her surgeon this week. All imaging and laboratory studies provided. patient agrees with plan. I recommended stool softeners, fluids, and Tylenol. Based on patient's history of present illness and physical examination the decision was made to discharge. The patient was re-evaluated after ED treatment and stabilizing measures, and symptoms have improved. There is no evidence of life threatening injuries or illnesses at this time. On re-examination, patient resting in no distress, stable vital signs, reports feeling better and safe for discharge with outpatient follow up with PMD in 1-2 days. Patient given return precautions. Departure Diagnosis: Primary Impression: History of surgery for acute abdominal pain Additional Impressions: Abdominal pain Abdominal location: generalized Qualified Code: R10.84 - Generalized abdominal pain Removal of aracelis Nausea YVETTE JALLOH PA-C Jul 18, 2017 02:30
[2017-07-18] MEDS ORDERED: ONDA4TAB14 PO (02:47)
[2017-07-18] MEDS ORDERED: ACET325T33 PO (02:47)
[2017-07-18] MEDS ORDERED: POLY17PO6 PO (02:47)
[2017-07-18] MEDS ORDERED: DOCU-144 PO (02:47)
[2017-07-18 03:15] VITALS: BP 107/63; PULSE 63; RESP 20; TEMP 97.6
== END 2017-07-18 03:15 | disposition home or self-care (01) ==
LOC: FTE 18:09
DX: R10.84 Generalized abdominal pain (principal); R11.0 Nausea; Z48.02 Encounter for removal of sutures
CPT/HCPCS: 36415; 74176; 80053; 81001; 83605; 83690; 85025; 85610; 85730; 87040; 96374; J2405; J7030; Z7502; Z7610

== ENCOUNTER 2018-02-28 10:18 | Emergency (ER) | END 2018-02-28 12:20 | disposition home or self-care (01) ==